=== PATIENT | female | born 1945 | race Caucasian/White ===

== ENCOUNTER 2017-01-27 08:31 | Inpatient (IN) | payer MEDICARE, OTHER ==
[~2017-01-27 08:31] MED LIST: Acetaminophen 1,000 MG in Premix Bag 1 BAG IV SCH; Famotidine 20 MG/2 ML SDV IVPUSH SCH; Ropivacaine 49.25 ML, EPINEPHrine 0.5 MG, cloNIDine 80 MCG in Sodium Chloride 0.9% 49.4... INJECT ONE; Scopolamine 1.5 MG Transdermal Patch TRDERM SCH; ceFAZolin 1 GM in Premix Bag 1 BAG IV SCH; ceFAZolin 2 GM in Premix Bag 1 BAG IV SCH; oxyCODONE ER 20 MG TAB.ER PO SCH
--- NOTE | 2017-01-27 09:11 | PCM.PREANE ---
Preanesthetic Assessment - Anesthesia/Transfusion/Family Hx Anesthesia History: Prior Anesthesia Without Reaction Other Type of Anesthesia Reaction Comment: Denies any known problem with anesthesia in the past Family History of Anesthesia Reaction: No Transfusion History: No Prior Transfusion(s) - Review of Systems General: No Symptoms Pulmonary: No Symptoms Cardiovascular: No Symptoms Gastrointestinal: No Symptoms Neurological: No Symptoms Other: Reports: None - Physical Assessment NPO Status Date: 01/26/17 Height: 1.52 m Weight: 75.75 kg ASA Class: 2 Mental Status: Alert & Oriented x3 Airway Class: Mallampati = 2 Dentition: Reports: Normal Dentition ROM/Head Extension: Full Lungs: Clear to Auscultation, Normal Respiratory Effort Cardiovascular: Regular Rate, Regular Rhythm - Allergies Allergies/Adverse Reactions: Allergies Allergy/AdvReac Type Severity Reaction Status Date / Time latex Allergy Itching Verified 01/25/14 12:29 - Blood Blood Available: Yes - Anesthesia Plan Pre-Op Medication Ordered: None - Acknowledgements Anesthesia Type Planned: Spinal Pt an Appropriate Candidate for the Planned Anesthesia: Yes Alternatives and Risks of Anesthesia Discussed w Pt/Guardian: Yes Pt/Guardian Understands and Agrees with Anesthesia Plan: Yes PreAnesthesia Questionnaire HEENT History: Reports: Other (See Below) Other HEENT History: wears glasses Cardiovascular History: Reports: Hypertension Respiratory History: Reports: Asthma Gastrointestinal History: Reports: Hiatal Hernia Genitourinary History: Reports: None 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: Musculoskeletal History: Reports: Arthritis Psychiatric History: Reports: Anxiety Endocrine/Metabolic History: Reports: Obesity/BMI 30+ Dermatologic History: Reports: Psoriasis - Past Surgical History Head Surgeries/Procedures: Reports: None Female Surgical History: Reports: Section Musculoskeletal Surgical History: Reports: Knee Replacement, Shoulder Surgery Other Musculoskeletal Surgeries/Procedures:: left knee replacement, shoulder surgery x3 - SUBSTANCE USE Smoking Status *Q: Never Smoker Second Hand Smoke Exposure: No Days Per Week of Alcohol Use: 3 Number of Drinks Per Day: 2 Total Drinks Per Week: 6 Recreational Drug Use History: No - HOME MEDS Home Medications: Home Meds Chlorthalidone 25 mg PO BEDTIME 09/06/13 [History] Albuterol [Proair HFA] 1 - 2 puff INH ASDIRECTED PRN 06/25/14 [History] Budesonide/Formoterol Fumarate [Symbicort 160-4.5 Mcg Inhaler] 2 puff INH DAILY 01/21/17 [History] Montelukast Sodium 10 mg PO BEDTIME 01/21/17 [History] - CURRENT (IN HOUSE) MEDS Current Meds: Current Medications Famotidine (Pepcid) 40 mg IVPUSH ONARRIVE [facility] Lactated Ringer's (Ringers, Lactated) 1,000 mls @ 100 mls/hr IV ASDIRECTED [facility] Acetaminophen 1,000 mg/ Premix 100 mls @ 400 mls/hr IV ONCALL [facility] Cefazolin Sodium/Dextrose 1 gm (/ Premix) 50 mls @ 100 mls/hr IV ONCALL [facility] Oxycodone HCl (Oxycontin) 20 mg PO ONARRIVE [facility] Scopolamine (Transderm-Scop) 1.5 mg TRDERM ONARRIVE [facility] Tranexamic Acid (Cyklokapron) 4,000 mg IV SEECOMMENT [facility] Discontinued Medications Cefazolin Sodium/Dextrose 2 gm (/ Premix) 50 mls @ 100 mls/hr IV ONCALL [facility] Ropivacaine 49.25 ml/Epinephrine HCl 0.5 mg/Clonidine HCl 80 mcg/ Sodium Chloride 100 mls @ 50 mls/min INJECT ONETIME ONE Stop: 01/27/17 06:01
[2017-01-27] MEDS ORDERED: Propofol 200 MG/20 ML SDV ONE ×3 (09:19→09:20)
[2017-01-27] MEDS ORDERED: Midazolam 1 MG/ML 2 ML SDV ONE ×2 (09:19)
[2017-01-27] MEDS ORDERED: fentaNYL 100 MCG/2 ML SDV ONE (09:22)
[2017-01-27] MEDS ORDERED: fentaNYL 100 MCG/2 ML SDV IVPUSH PRN (10:45)
[2017-01-27] MEDS ORDERED: Phenylephrine/Normal Saline 100 MCG/ML 10 ML Syringe ONE (10:53)
[2017-01-27] MEDS ORDERED: ePHEDrine 50 MG/ML SDV ONE (11:03)
[2017-01-27] MEDS ORDERED: Bisacodyl 10 MG Supp RECTAL PRN (12:05)
[2017-01-27] MEDS ORDERED: Aluminum Hydroxide/Magnesium Hydroxide/Simethicone Susp 30 ML Cup PO PRN (12:05)
[2017-01-27] MEDS ORDERED: diphenhydrAMINE 25 MG Cap PO PRN (12:05)
[2017-01-27] MEDS ORDERED: Ondansetron 4 MG/2 ML SDV IV PRN (12:05)
--- NOTE | 2017-01-27 13:19 | PCM.POSTAN ---
POST ANESTHESIA ASSESSMENT - MENTAL STATUS Mental Status: Alert, Oriented - RESPIRATORY Respiratory Status: Respiratory Rate WNL, Airway Patent, O2 Saturation Stable - CARDIOVASCULAR CV Status: Pulse Rate WNL, Blood Pressure Stable - GASTROINTESTINAL GI Status: No Symptoms - POST OP HYDRATION Hydration Status: Adequate & Stable
--- NOTE | 2017-01-27 13:20 | PCM.OPNOTE ---
- General Post-Op/Procedure Note Date of Surgery/Procedure: 01/27/17 Operative Procedure(s): R TKA Post-Op Diagnosis: DJD R knee Anesthesia Technique: Moderate Sedation, Spinal Primary Surgeon: Ivania Cortes Sign Hanger Supervisor: Fawn Palomares Sign Hanger Supervisor: Janina Ball in mLs: 50 Condition: Good Free Text/Narrative:: [id number] min #[id number] Intake & Output 01/26/17 01/27/17 01/27/17 22:59 06:59 14:59 Intake Total 1700 Output Total 165 Balance 1535
[2017-01-27] MEDS: oxyCODONE 5 MG Tab PO PRN (14:53)
--- NOTE | 2017-01-27 15:22 | CR ---
EXAMINATION: Right knee HISTORY: TKA COMPARISON: 12/25/2016 TECHNIQUE: 2 views FINDINGS/IMPRESSION: Right total knee hardware is demonstrated in good position and alignment. Operative soft tissue razo ges are noted.
[2017-01-27] MEDS: Acetaminophen 1,000 MG in Premix Bag 1 BAG IV SCH ×2 (15:32→21:41)
[2017-01-27] MEDS ORDERED: methylPREDNISolone Acetate 80 MG/ML SDV IM ONE (16:05)
[2017-01-27] MEDS ORDERED: Lidocaine 1% 10 ML MDV INJECT ONE (16:06)
[2017-01-27] MEDS: Morphine 4 MG/ML Syringe IVPUSH PRN ×2 (17:22→22:25)
[2017-01-27] MEDS: Lactated Ringers 1,000 ML IV SCH (17:28)
--- NOTE | 2017-01-27 18:04 | OR ---
SURGEON: Ivania Cortes MD DATE OF PROCEDURE: 01/27/2017 PREOPERATIVE DIAGNOSIS: Degenerative joint disease, right knee, tricompartmental. POSTOPERATIVE DIAGNOSIS: Degenerative joint disease, right knee, tricompartmental. PROCEDURE: Right total knee arthroplasty using patient-specific instrumentation. CLEARING INSPECTOR: Fawn Palomares PA-C and Janina Ball PA-C. ANESTHESIA: Spinal with sedation. ESTIMATED BLOOD LOSS: 50 mL. TOURNIQUET TIME: 51 minutes. COMPLICATIONS: None. DVT PROPHYLAXIS: PAS boot and YUMIKO hose to the nonoperative leg. IMPLANTS USED: Griselda NexGen femoral component size D (LPS), tibial component, size 3, 12 mm all-polyethylene articular surface, and 32 mm all-polyethylene patella. FINDINGS: Intraoperative findings showed severe tricompartmental degenerative changes with osteophyte formation. 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 BRIEF HISTORY: Julia is a 71-year-old female, who has had complaint of progressive right knee pain. She had failed conservative treatment. She has previously undergone a left total knee arthroplasty and has done well. Due to her lack of response to conservative treatment, I did recommend surgical intervention. The risks and goals of procedure were discussed with the patient and were documented preoperatively. She agreed to proceed. DESCRIPTION OF THE PROCEDURE: The patient was properly identified and brought to the operating room. The patient was transferred from the operating room cart and placed on the operating room table. Spinal anesthesia was administered by the anesthesia team. After adequate sedation was achieved, a well-padded tourniquet was applied to the lower extremity. A Rodriguez catheter was then placed. The lower extremity was then prepped in standard fashion using ChloraPrep solution. It was then sterilely draped. A time-out was performed to ensure correct site and procedure. Preoperative antibiotics were given along with one gram of tranexamic acid IV. The surgical site had been marked preoperatively. An Esmarch was used to exsanguinate the lower extremity and the tourniquet was inflated. An incision was made centered over the anterior aspect of the knee. The subcutaneous tissues were dissected down to the level of the fascia. A medial parapatellar approach was made. A partial medial release was also performed. The knee was then brought into extension and a portion of the infrapatellar fat pad was excised. The knee was then brought into flexion. The femoral patient specific cutting block was placed. This fit anatomically. The pins were then placed. The 0 degree distal femoral cutting guide was placed over the distal femur pins. The femur was then resected using an oscillating saw. The pins were then removed and were placed into the previously placed distal drill holes in the femoral condyles. Both Hepler's and the epicondylar axis were marked with electric cautery. The cutting block was then placed. This was pinned into position in a slightly lateral and externally rotated position. This was then secured. The resection guide was used to check to make sure that the anterior femoral cortex would not be notched. The anterior condylar cut was then made. No notching of the femur was noted. This was followed by the posterior condylar, posterior chamfer, and anterior chamfer cuts. The narrow reciprocating saw was then used to cut the base of the trochlear recess and score the edges. The finishing guide was then removed and the trochlear recess cuts and remaining bone cuts were finished. The notch cutting block was then placed into position and the notch cut was made without difficulty using the reciprocating saw. This was then removed. The notch block that had been cut along with a portion of the cruciate ligaments were also resected. We then turned our attention to the tibia. The posterior cruciate ligament retractor was used to bring the tibial surface anteriorly. The patient specific tibial block was then placed. This fit anatomically. It was pinned into position. The block was then removed. The 0 degree proximal tibia cutting guide was then placed over the guide pin. This was secured with a Shivani clamp. The resection depth was checked using the resection guide. A proximal tibia cut was then made using an oscillating saw. Care was taken to protect the patellar tendon. The proximal tibia bone was then removed. The remainder of the medial and lateral meniscus were also excised. Care was taken to protect the popliteus tendon. The proximal tibia was then sized. The remainder of the osteophytes along the proximal tibia were also resected. The distal femur was elevated to expose the posterior knee. The posterior capsule was stripped off of the distal femur using a curved osteotome. The posterior osteophytes were also excised. The posterior capsule, along with the medial and lateral gutters, were then injected with the standard, preoperatively prepared, mixture consisting of clonidine, epinephrine, ropivacaine, Toradol, and saline, unless any allergies were noted preoperatively. The femoral trial was then placed. This was followed by the tibial component with a size 10 trial polyethylene. The knee was brought into full extension. Stability to varus and valgus stress was checked in extension and in flexion. There appeared to be good range of motion and stability. The knee was then brought into full extension. The patella was everted. The patella was resected to a thickness of 15 millimeters. It was then sized. Once the appropriate size was determined, the patella was prepared by placing the patella button in a slightly superior and medial position. The patella button trial was then placed and the knee was again taken through a range of motion. There was excellent patellar tracking using the no-touch technique. Alignment was checked with a drop mitzi. The trial components were then removed. The knee was brought into full flexion and the tibia was prepared in a standard fashion placing the tibial plate in slight external rotation with the center of the prosthesis lined up with the medial aspect of the tibial tubercle. The wound was then copiously irrigated with Pulsavac solution to remove any bony debris. The bone ends were then suctioned dry. Cement was prepared in the usual fashion on the back table. The cement was then placed onto the proximal tibia and the tibial component was placed without difficulty. This was malleted into position. Excess cement was cleared. The femoral component was cemented in a similar manner. A trial polyethylene was then placed and the knee was brought into full extension. An axial load was applied. The patella button was then cemented into place and a patella clamp was placed to hold pressure. The cement was allowed to cure. The wound was again copiously irrigated with saline solution using a Pulsavac glass cylinder flanger. Following this 1 g of tranexamic acid was applied to the wound topically. After the cement had adequately hardened, the patella clamp was released. The knee was again taken through a range of motion. It was determined at this time the correct thickness of polyethylene. The trial polyethylene insert was then removed. The knee was brought into flexion and the tibial tray was suctioned dry. Any excess cement was cleared from the tibial and femoral components. The knee was then brought into approximately 45 degrees of flexion. The tourniquet was deflated. No excess bleeding was noted from the posterior aspect of the knee. An additional gram of tranexamic acid was given IV. The previously determined sized polyethylene insert was then placed and locked into position without difficulty. The knee was again taken through a range of motion with no change in stability, either in flexion or extension. The fascia layer was closed with No. 1 Vicryl. The subcutaneous tissue was closed with 2-0 Vicryl and the skin was closed with a jelly. Xeroform gauze was placed over the wound and a bulky dressing was applied. The patient was then awakened from the anesthetic and transferred back to the operating cart. The patient was brought to recovery room in stable condition. All needle and sponge counts were correct. LIANNA / MAUDE /[id number]
[2017-01-27] MEDS: ceFAZolin 1 GM in Premix Bag 1 BAG IV SCH (18:29)
[2017-01-27] MEDS: Docusate Sodium 100 MG Cap PO SCH (21:40)
[2017-01-27] MEDS: oxyCODONE ER 20 MG TAB.ER PO SCH (21:40)
[2017-01-28] MEDS: oxyCODONE 5 MG Tab PO PRN (02:01)
[2017-01-28] MEDS: ceFAZolin 1 GM in Premix Bag 1 BAG IV SCH (02:44)
[2017-01-28] MEDS: Acetaminophen 500 MG Tab PO SCH ×4 (03:14→21:11)
[2017-01-28] MEDS: Lactated Ringers 1,000 ML IV SCH (03:59)
--- NOTE | 2017-01-28 08:17 | PCM48HPAN ---
Post Anesthesia Note - EVALUATION WITHIN 48HRS OF ANESTHETIC Vital Signs in Normal Range: Yes Patient Participated in Evaluation: Yes Respiratory Function Stable: Yes Airway Patent: Yes Cardiovascular Function Stable: Yes Hydration Status Stable: Yes Pain Control Satisfactory: Yes Nausea and Vomiting Control Satisfactory: Yes Mental Status Recovered: Yes
[2017-01-28] MEDS: Aspirin 325 MG Tab PO SCH ×2 (08:20→21:07)
[2017-01-28] MEDS: Docusate Sodium 100 MG Cap PO SCH ×2 (08:21→21:07)
[2017-01-28] MEDS: oxyCODONE ER 20 MG TAB.ER PO SCH ×2 (08:21→21:07)
[2017-01-28] MEDS ORDERED: Sodium Chloride 0.9% 10 ML Syringe FLUSH PRN (08:44)
[2017-01-28] MEDS ORDERED: Sodium Chloride 0.9% 2.5 ML Syringe FLUSH PRN (08:44)
--- NOTE | 2017-01-28 08:49 | PCM.SURGPN ---
- General Info Date of Service: 01/28/17 Date of Surgery/Procedure: 01/27/17 POD#: 1 Functional Status: Reports: Pain Controlled, Tolerating Diet, Ambulating - Review of Systems General: Reports: No Symptoms Pulmonary: Reports: No Symptoms Cardiovascular: Reports: No Symptoms Gastrointestinal: Reports: No Symptoms Genitourinary: Reports: No Symptoms Musculoskeletal: Reports: Leg Pain, Joint Pain, Joint Swelling Neurological: Reports: No Symptoms Psychiatric: Reports: No Symptoms - Patient Data Vitals - Most Recent: Last Vital Signs Temp 36.8 C 01/28/17 08:25 Pulse 78 01/28/17 08:25 Resp 16 01/28/17 08:25 BP 155/70 H 01/28/17 08:25 Pulse Ox 97 01/28/17 08:25 Weight - Most Recent: 75.75 kg I&O - Last 24 Hours: Intake & Output 01/27/17 01/28/17 01/28/17 22:59 06:59 14:59 Intake Total 1100 1574 Output Total 300 900 Balance 800 674 Lab Results Last 24 Hrs: Laboratory Results - last 24 hr 01/27/17 01/28/17 Range/Units 09:20 07:06 Hgb 15.1 (12.0-16.0) g/dL Hct 43.8 (36.0-46.0) % Blood Type O NEGATIVE Antibody Screen NEGATIVE Med Orders - Current: Current Medications Acetaminophen (Tylenol Extra Strength) 1,000 mg PO Q6H [facility] Last Admin: 01/28/17 03:14 Dose: 1,000 mg Al Hydroxide/Mg Hydroxide (Mag-Al Plus) 30 ml PO Q4H PRN PRN Reason: indigestion Aspirin (Aspirin) 325 mg PO BID [facility] Last Admin: 01/28/17 08:20 Dose: 325 mg Bisacodyl (Dulcolax) 10 mg RECTAL DAILY PRN PRN Reason: Constipation Diphenhydramine HCl (Benadryl) 25 - 50 mg PO Q6H PRN PRN Reason: Itching Docusate Sodium (Colace) 100 mg PO BID [facility] Last Admin: 01/28/17 08:21 Dose: 100 mg Morphine Sulfate (Morphine) 1 - 3 mg IVPUSH Q3H PRN PRN Reason: Pain Last Admin: 01/27/17 22:25 Dose: 3 mg Ondansetron HCl (Zofran) 4 mg IV Q6HR PRN PRN Reason: NAUSEA/VOMITING Oxycodone HCl (Oxycodone) 5 - 10 mg PO Q4H PRN PRN Reason: Pain Last Admin: 01/28/17 02:01 Dose: 10 mg Oxycodone HCl (Oxycontin) 20 mg PO Q12HR [facility] Last Admin: 01/28/17 08:21 Dose: 20 mg Scopolamine (Transderm-Scop) 1.5 mg TRDERM ONARRIVE [facility] Last Admin: 01/27/17 09:26 Dose: 1.5 mg Sodium Chloride (Saline Flush) 10 ml FLUSH ASDIRECTED PRN PRN Reason: Keep Vein Open Sodium Chloride (Saline Flush) 2.5 ml FLUSH ASDIRECTED PRN PRN Reason: Keep Vein Open Discontinued Medications Ephedrine Sulfate (Ephedrine Sulfate) Confirm Administered Dose 50 mg .ROUTE .STK-MED ONE Stop: 01/27/17 11:04 Famotidine (Pepcid) 40 mg IVPUSH ONARRIVE [facility] Last Admin: 01/27/17 09:26 Dose: 40 mg Fentanyl (Sublimaze) Confirm Administered Dose 100 mcg .ROUTE .STK-MED ONE Stop: 01/27/17 09:23 Fentanyl (Sublimaze) 50 mcg IVPUSH Q5M PRN PRN Reason: Pain (moderate 4-6) Stop: 01/27/17 14:00 Glycopyrrolate () Confirm Administered Dose 1 mg .ROUTE .STK-MED ONE Stop: 01/27/17 11:06 Cefazolin Sodium/Dextrose 2 gm (/ Premix) 50 mls @ 100 mls[facility] Ropivacaine 49.25 ml/Epinephrine HCl 0.5 mg/Clonidine HCl 80 mcg/ Sodium Chloride 100 mls @ 50 mls/min INJECT ONETIME ONE Stop: 01/27/17 06:01 Lactated Ringer's (Ringers, Lactated) 1,000 mls @ 100 mls/hr IV ASDIRECTED [facility] Last Admin: 01/28/17 03:59 Dose: 100 mls/hr Acetaminophen 1,000 mg/ Premix 100 mls @ 400 mls/hr IV ONCALL [facility] Last Admin: 01/27/17 09:26 Dose: 400 mls/hr Cefazolin Sodium/Dextrose 1 gm (/ Premix) 50 mls @ 100 mls/hr IV ONCALL [facility] Cefazolin Sodium/Dextrose (Ancef) Confirm Administered Dose 50 mls @ as directed .ROUTE .STK-MED ONE Stop: 01/27/17 09:18 Acetaminophen 1,000 mg/ Premix 100 mls @ 400 mls/hr IV Q6H [facility] Stop: 01/27/17 22:14 Last Admin: 01/27/17 21:41 Dose: 400 mls/hr Cefazolin Sodium/Dextrose 1 gm (/ Premix) 50 mls @ 100 mls/hr IV Q8H [facility] Stop: 01/28/17 03:29 Last Admin: 01/28/17 02:44 Dose: 100 mls/hr Lidocaine HCl (Xylocaine 1%) 10 ml INJECT ONETIME ONE Stop: 01/27/17 16:07 Methylprednisolone Acetate (Depo-Medrol) 160 mg IM ONETIME ONE Stop: 01/27/17 16:06 Last Admin: 01/28/17 08:02 Dose: 160 mg Midazolam HCl (Versed 1 Mg/Ml) Confirm Administered Dose 2 mg .ROUTE .STK-MED ONE Stop: 01/27/17 09:20 Midazolam HCl (Versed 1 Mg/Ml) Confirm Administered Dose 2 mg .ROUTE .STK-MED ONE Stop: 01/27/17 09:20 Oxycodone HCl (Oxycontin) 20 mg PO ONARRIVE [facility] Last Admin: 01/27/17 09:25 Dose: 20 mg Phenylephrine HCl (Phenylephrine In Ns 100 Mcg/Ml) Confirm Administered Dose 1 mg .ROUTE .STK-MED ONE Stop: 01/27/17 10:54 Propofol (Diprivan 20 Ml) Confirm Administered Dose 200 mg .ROUTE .STK-MED ONE Stop: 01/27/17 09:20 Propofol (Diprivan 20 Ml) Confirm Administered Dose 200 mg .ROUTE .STK-MED ONE Stop: 01/27/17 09:20 Propofol (Diprivan 20 Ml) Confirm Administered Dose 200 mg .ROUTE .STK-MED ONE Stop: 01/27/17 09:21 Tranexamic Acid (Cyklokapron) 4,000 mg IV SEECOMMENT [facility] Tranexamic Acid (Cyklokapron) Confirm Administered Dose 4,000 mg .ROUTE .STK- MED ONE Stop: 01/27/17 09:17 - Exam Wound/Incisions: Dressing Dry and Intact General: Alert, Oriented HEENT: Pupils Equal, Pupils Reactive Neck: Trachea Midline Lungs: Normal Respiratory Effort Cardiovascular: Regular Rate Extremities: Other (Right anterior tibialis, extensor hallucis longus and gastrocnemius strength +5/5 bilaterally. Sensation intact. Dorsalis pedis and posterior tibial pulses +2 bilaterally. She does have point tenderness over the right greater trochanteric bursa.) Neurological: No New Focal Deficit Psy/Mental Status: Alert, Normal Affect, Normal Mood - Problem List Review Problem List Initiated/Reviewed/Updated: Yes - My Orders Last 24 Hours: Active Orders 24 hr Category Date Time Status Patient Status [ADT] Routine ADT 01/27/17 08:49 Active Activity as Tolerated [RC] .Routine Care 01/27/17 12:05 Active Intake and Output [RC] Q12H Care 01/27/17 12:05 Active Neurovascular Check [RC] Q2HR Care 01/27/17 12:05 Active Notify Provider Vital Signs [RC] ASDIRECTED Care 01/27/17 12:05 Active RT Incentive Spirometry [RC] ASDIRECTED Care 01/27/17 12:05 Active Remove [place] Catheter [Urinary Catheter Removal] [RC] Care 01/28/17 08:44 Ordered Per Unit Routine Vital Signs [RC] Q4H Care 01/27/17 12:05 Active PT Evaluation and Treatment [CONS] Routine Cons 01/27/17 12:05 Active HEMOGLOBIN/HEMATOCRIT,HH [HEME] DAILY Lab 01/29/17 07:00 Ordered HEMOGLOBIN/HEMATOCRIT,HH [HEME] DAILY Lab 01/30/17 07:00 Ordered Acetaminophen [Tylenol Extra Strength] Med 01/28/17 04:00 Active 1,000 mg PO Q6H Alum Hydrox/Mag Hydrox/Simeth [Mag-Al Plus] Med 01/27/17 12:05 Active 30 ml PO Q4H PRN Aspirin Med 01/28/17 09:00 Active 325 mg PO BID Bisacodyl [Dulcolax] Med 01/27/17 12:05 Active 10 mg RECTAL DAILY PRN Docusate Sodium [Colace] Med 01/27/17 21:00 Active 100 mg PO BID Morphine Med 01/27/17 12:05 Active 1 - 3 mg IVPUSH Q3H PRN Ondansetron [Zofran] Med 01/27/17 12:05 Active 4 mg IV Q6HR PRN Sodium Chloride 0.9% [Saline Flush] Med 01/28/17 08:44 Ordered 10 ml FLUSH ASDIRECTED PRN Sodium Chloride 0.9% [Saline Flush] Med 01/28/17 08:44 Ordered 2.5 ml FLUSH ASDIRECTED PRN diphenhydrAMINE [Benadryl] Med 01/27/17 12:05 Active 25 - 50 mg PO Q6H PRN oxyCODONE Med 01/27/17 12:05 Active 5 - 10 mg PO Q4H PRN oxyCODONE ER [OxyCONTIN] Med 01/27/17 21:00 Active 20 mg PO Q12HR Convert IV to Saline Lock [OM.PC] Routine Oth 01/28/17 08:44 Ordered Medication Orders Acetaminophen (Tylenol Extra Strength) 1,000 mg PO Q6H [facility] Last Admin: 01/28/17 03:14 Dose: 1,000 mg Al Hydroxide/Mg Hydroxide (Mag-Al Plus) 30 ml PO Q4H PRN PRN Reason: indigestion Aspirin (Aspirin) 325 mg PO BID [facility] Last Admin: 01/28/17 08:20 Dose: 325 mg Bisacodyl (Dulcolax) 10 mg RECTAL DAILY PRN PRN Reason: Constipation Diphenhydramine HCl (Benadryl) 25 - 50 mg PO Q6H PRN PRN Reason: Itching Docusate Sodium (Colace) 100 mg PO BID [facility] Last Admin: 01/28/17 08:21 Dose: 100 mg Admin: 01/27/17 21:40 Dose: 100 mg Morphine Sulfate (Morphine) 1 - 3 mg IVPUSH Q3H PRN PRN Reason: Pain Last Admin: 01/27/17 22:25 Dose: 3 mg Admin: 01/27/17 17:22 Dose: 3 mg Ondansetron HCl (Zofran) 4 mg IV Q6HR PRN PRN Reason: NAUSEA/VOMITING Oxycodone HCl (Oxycodone) 5 - 10 mg PO Q4H PRN PRN Reason: Pain Last Admin: 01/28/17 02:01 Dose: 10 mg Admin: 01/27/17 14:53 Dose: 10 mg Oxycodone HCl (Oxycontin) 20 mg PO Q12HR [facility] Last Admin: 01/28/17 08:21 Dose: 20 mg Admin: 01/27/17 21:40 Dose: 20 mg Scopolamine (Transderm-Scop) 1.5 mg TRDERM ONARRIVE [facility] Last Admin: 01/27/17 09:26 Dose: 1.5 mg Sodium Chloride (Saline Flush) 10 ml FLUSH ASDIRECTED PRN PRN Reason: Keep Vein Open Sodium Chloride (Saline Flush) 2.5 ml FLUSH ASDIRECTED PRN PRN Reason: Keep Vein Open - Assessment Assessment (Free Text/Narrative):: Patient up to chair this AM. Tolerating diet. Pain not well controlled last night. VSS. Hgb 15.1. UO 1440 mL. - Plan Plan (Free Text/Narrative):: R greater trochanteric bursa injected at bedside today. Continue pain management. Continue PT. DC de la fuente and LRs. Encourage PO fluid intake. Start Aspirin 325 mg PO BID for DVT prophylaxis. D/C home tomorrow.
[2017-01-28] MEDS ORDERED: Albuterol 8 GM Inhaler INH PRN (10:28)
[2017-01-28] MEDS: Morphine 4 MG/ML Syringe IVPUSH PRN (11:27)
[2017-01-28] MEDS: SYMBICORT 160/4.5 INH SCH (11:30)
[2017-01-28] MEDS ORDERED: Montelukast 10 MG Tab PO SCH (21:00)
[2017-01-28] MEDS ORDERED: Chlorthalidone 25 MG Tab PO SCH (21:00)
[2017-01-29] MEDS: Acetaminophen 500 MG Tab PO SCH ×2 (03:47→09:16)
--- NOTE | 2017-01-29 07:54 | PCM.SURGPN ---
<Fawn Palomares - Last Filed: 01/29/17 07:55> - General Info Date of Service: 01/29/17 Date of Surgery/Procedure: 01/27/17 POD#: 2 Functional Status: Reports: Pain Controlled, Tolerating Diet, Ambulating, Urinating - Review of Systems General: Reports: No Symptoms Pulmonary: Reports: No Symptoms Cardiovascular: Reports: No Symptoms Gastrointestinal: Reports: No Symptoms Genitourinary: Reports: No Symptoms Musculoskeletal: Reports: Leg Pain, Joint Pain, Joint Swelling Neurological: Reports: No Symptoms Psychiatric: Reports: No Symptoms - Patient Data Vitals - Most Recent: Last Vital Signs Temp 36.3 C 01/29/17 04:00 Pulse 80 01/29/17 04:00 Resp 16 01/29/17 04:00 BP 136/64 01/29/17 04:00 Pulse Ox 94 L 01/29/17 04:00 Weight - Most Recent: 75.75 kg I&O - Last 24 Hours: Intake & Output 01/28/17 01/29/17 01/29/17 22:59 06:59 14:59 Intake Total 500 600 Output Total 1550 1950 Balance -1050 -1350 Lab Results Last 24 Hrs: Laboratory Results - last 24 hr 01/29/17 Range/Units 06:55 Hgb 15.9 (12.0-16.0) g/dL Hct 46.0 (36.0-46.0) % Med Orders - Current: Current Medications Acetaminophen (Tylenol Extra Strength) 1,000 mg PO Q6H [facility] Last Admin: 01/29/17 03:47 Dose: 1,000 mg Al Hydroxide/Mg Hydroxide (Mag-Al Plus) 30 ml PO Q4H PRN PRN Reason: indigestion Albuterol (Ventolin Hfa) 1 - 2 gm INH ASDIRECTED PRN PRN Reason: Dyspnea Aspirin (Aspirin) 325 mg PO BID [facility] Last Admin: 01/28/17 21:07 Dose: 325 mg Bisacodyl (Dulcolax) 10 mg RECTAL DAILY PRN PRN Reason: Constipation Chlorthalidone (Chlorthalidone) 25 mg PO BEDTIME [facility] Last Admin: 01/28/17 21:07 Dose: 25 mg Diphenhydramine HCl (Benadryl) 25 - 50 mg PO Q6H PRN PRN Reason: Itching Docusate Sodium (Colace) 100 mg PO BID [facility] Last Admin: 01/28/17 21:07 Dose: 100 mg Montelukast Sodium (Singulair) 10 mg PO BEDTIME [facility] Last Admin: 01/28/17 21:08 Dose: 10 mg Morphine Sulfate (Morphine) 1 - 3 mg IVPUSH Q3H PRN PRN Reason: Pain Last Admin: 01/28/17 11:27 Dose: 3 mg Ondansetron HCl (Zofran) 4 mg IV Q6HR PRN PRN Reason: NAUSEA/VOMITING Oxycodone HCl (Oxycodone) 5 - 10 mg PO Q4H PRN PRN Reason: Pain Last Admin: 01/28/17 02:01 Dose: 10 mg Oxycodone HCl (Oxycontin) 20 mg PO Q12HR [facility] Last Admin: 01/28/17 21:07 Dose: 20 mg Symbicort 160/4.5 2 each INH DAILY [facility] Last Admin: 01/28/17 11:30 Dose: 2 each Scopolamine (Transderm-Scop) 1.5 mg TRDERM ONARRIVE [facility] Last Admin: 01/27/17 09:26 Dose: 1.5 mg Sodium Chloride (Saline Flush) 10 ml FLUSH ASDIRECTED PRN PRN Reason: Keep Vein Open Sodium Chloride (Saline Flush) 2.5 ml FLUSH ASDIRECTED PRN PRN Reason: Keep Vein Open Discontinued Medications Ephedrine Sulfate (Ephedrine Sulfate) Confirm Administered Dose 50 mg .ROUTE .STK-MED ONE Stop: 01/27/17 11:04 Famotidine (Pepcid) 40 mg IVPUSH ONARRIVE [facility] Last Admin: 01/27/17 09:26 Dose: 40 mg Fentanyl (Sublimaze) Confirm Administered Dose 100 mcg .ROUTE .STK-MED ONE Stop: 01/27/17 09:23 Fentanyl (Sublimaze) 50 mcg IVPUSH Q5M PRN PRN Reason: Pain (moderate 4-6) Stop: 01/27/17 14:00 Glycopyrrolate () Confirm Administered Dose 1 mg .ROUTE .STK-MED ONE Stop: 01/27/17 11:06 Cefazolin Sodium/Dextrose 2 gm (/ Premix) 50 mls @ 100 mls/hr IV ONCALL [facility] Ropivacaine 49.25 ml/Epinephrine HCl 0.5 mg/Clonidine HCl 80 mcg/ Sodium Chloride 100 mls @ 50 mls/min INJECT ONETIME ONE Stop: 01/27/17 06:01 Last Admin: 01/28/17 16:25 Dose: Not Given Lactated Ringer's (Ringers, Lactated) 1,000 mls @ 100 mls/hr IV ASDIRECTED [facility] Last Admin: 01/28/17 03:59 Dose: 100 mls/hr Acetaminophen 1,000 mg/ Premix 100 mls @ 400 mls/hr IV ONCALL [facility] Last Admin: 01/27/17 09:26 Dose: 400 mls/hr Cefazolin Sodium/Dextrose 1 gm (/ Premix) 50 mls @ 100 mls/hr IV ONCALL [facility] Cefazolin Sodium/Dextrose (Ancef) Confirm Administered Dose 50 mls @ as directed .ROUTE .STK-MED ONE Stop: 01/27/17 09:18 Acetaminophen 1,000 mg/ Premix 100 mls @ 400 mls/hr IV Q6H [facility] Stop: 01/27/17 22:14 Last Admin: 01/27/17 21:41 Dose: 400 mls/hr Cefazolin Sodium/Dextrose 1 gm (/ Premix) 50 mls @ 100 mls/hr IV Q8H [facility] Stop: 01/28/17 03:29 Last Admin: 01/28/17 02:44 Dose: 100 mls/hr Lidocaine HCl (Xylocaine 1%) 10 ml INJECT ONETIME ONE Stop: 01/27/17 16:07 Last Admin: 01/28/17 16:25 Dose: Not Given Methylprednisolone Acetate (Depo-Medrol) 160 mg IM ONETIME ONE Stop: 01/27/17 16:06 Last Admin: 01/28/17 08:02 Dose: 160 mg Midazolam HCl (Versed 1 Mg/Ml) Confirm Administered Dose 2 mg .ROUTE .STK-MED ONE Stop: 01/27/17 09:20 Midazolam HCl (Versed 1 Mg/Ml) Confirm Administered Dose 2 mg .ROUTE .STK-MED ONE Stop: 01/27/17 09:20 Oxycodone HCl (Oxycontin) 20 mg PO ONARRIVE [facility] Last Admin: 01/27/17 09:25 Dose: 20 mg Phenylephrine HCl (Phenylephrine In Ns 100 Mcg/Ml) Confirm Administered Dose 1 mg .ROUTE .STK-MED ONE Stop: 01/27/17 10:54 Propofol (Diprivan 20 Ml) Confirm Administered Dose 200 mg .ROUTE .STK-MED ONE Stop: 01/27/17 09:20 Propofol (Diprivan 20 Ml) Confirm Administered Dose 200 mg .ROUTE .STK-MED ONE Stop: 01/27/17 09:20 Propofol (Diprivan 20 Ml) Confirm Administered Dose 200 mg .ROUTE .STK-MED ONE Stop: 01/27/17 09:21 Tranexamic Acid (Cyklokapron) 4,000 mg IV SEECOMMENT [facility] Tranexamic Acid (Cyklokapron) Confirm Administered Dose 4,000 mg .ROUTE .STK- MED ONE Stop: 01/27/17 09:17 - Exam Wound/Incisions: Dressing Dry and Intact (Dressing changed this AM.) General: Alert, Oriented HEENT: Pupils Equal, Pupils Reactive Neck: Trachea Midline Lungs: Normal Respiratory Effort Cardiovascular: Regular Rate Extremities: Other (Right anterior tibialis, extensor hallucis longus and gastrocnemius strength +5/5 bilaterally. Sensation intact. Dorsalis pedis and posterior tibial pulses +2 bilaterally.) Neurological: No New Focal Deficit Psy/Mental Status: Alert, Normal Affect, Normal Mood - Problem List Review Problem List Initiated/Reviewed/Updated: Yes - My Orders Last 24 Hours: Active Orders 24 hr Category Date Time Status HEMOGLOBIN/HEMATOCRIT,HH [HEME] DAILY Lab 01/30/17 07:00 Ordered Albuterol [Ventolin HFA] Med 01/28/17 10:28 Active 1 - 2 gm INH ASDIRECTED PRN Aspirin Med 01/28/17 09:00 Active 325 mg PO BID Chlorthalidone Med 01/28/17 21:00 Active 25 mg PO BEDTIME Montelukast [Singulair] Med 01/28/17 21:00 Active 10 mg PO BEDTIME Patient's Own Medication [Ptom] Med 01/28/17 10:30 Active 2 each INH DAILY Sodium Chloride 0.9% [Saline Flush] Med 01/28/17 08:44 Active 10 ml FLUSH ASDIRECTED PRN Sodium Chloride 0.9% [Saline Flush] Med 01/28/17 08:44 Active 2.5 ml FLUSH ASDIRECTED PRN Convert IV to Saline Lock [OM.PC] Routine Oth 01/28/17 08:44 Ordered Medication Orders Acetaminophen (Tylenol Extra Strength) 1,000 mg PO Q6H [facility] Last Admin: 01/29/17 03:47 Dose: 1,000 mg Admin: 01/28/17 21:11 Dose: 1,000 mg Admin: 01/28/17 15:22 Dose: 1,000 mg Admin: 01/28/17 09:51 Dose: 1,000 mg Admin: 01/28/17 03:14 Dose: 1,000 mg Al Hydroxide/Mg Hydroxide (Mag-Al Plus) 30 ml PO Q4H PRN PRN Reason: indigestion Albuterol (Ventolin Hfa) 1 - 2 gm INH ASDIRECTED PRN PRN Reason: Dyspnea Aspirin (Aspirin) 325 mg PO BID [facility] Last Admin: 01/28/17 21:07 Dose: 325 mg Admin: 01/28/17 08:20 Dose: 325 mg Bisacodyl (Dulcolax) 10 mg RECTAL DAILY PRN PRN Reason: Constipation Chlorthalidone (Chlorthalidone) 25 mg PO BEDTIME [facility] Last Admin: 01/28/17 21:07 Dose: 25 mg Diphenhydramine HCl (Benadryl) 25 - 50 mg PO Q6H PRN PRN Reason: Itching Docusate Sodium (Colace) 100 mg PO BID [facility] Last Admin: 01/28/17 21:07 Dose: 100 mg Admin: 01/28/17 08:21 Dose: 100 mg Admin: 01/27/17 21:40 Dose: 100 mg Montelukast Sodium (Singulair) 10 mg PO BEDTIME [facility] Last Admin: 01/28/17 21:08 Dose: 10 mg Morphine Sulfate (Morphine) 1 - 3 mg IVPUSH Q3H PRN PRN Reason: Pain Last Admin: 01/28/17 11:27 Dose: 3 mg Admin: 01/27/17 22:25 Dose: 3 mg Admin: 01/27/17 17:22 Dose: 3 mg Ondansetron HCl (Zofran) 4 mg IV Q6HR PRN PRN Reason: NAUSEA/VOMITING Oxycodone HCl (Oxycodone) 5 - 10 mg PO Q4H PRN PRN Reason: Pain Last Admin: 01/28/17 02:01 Dose: 10 mg Admin: 01/27/17 14:53 Dose: 10 mg Oxycodone HCl (Oxycontin) 20 mg PO Q12HR [facility] Last Admin: 01/28/17 21:07 Dose: 20 mg Admin: 01/28/17 08:21 Dose: 20 mg Admin: 01/27/17 21:40 Dose: 20 mg Symbicort 160/4.5 2 each INH DAILY [facility] Last Admin: 01/28/17 11:30 Dose: 2 each Scopolamine (Transderm-Scop) 1.5 mg TRDERM ONARRIVE [facility] Last Admin: 01/27/17 09:26 Dose: 1.5 mg Sodium Chloride (Saline Flush) 10 ml FLUSH ASDIRECTED PRN PRN Reason: Keep Vein Open Sodium Chloride (Saline Flush) 2.5 ml FLUSH ASDIRECTED PRN PRN Reason: Keep Vein Open - Assessment Assessment (Free Text/Narrative):: Patient up to chair this AM. Tolerating diet. Pain well controlled. VSS. Hgb 15.9. UO 3500 mL. - Plan Plan (Free Text/Narrative):: Continue PT. Continue PO pain management. Encourage PO fluid intake. D/C home this afternoon. <Ivania Cortes R - Last Filed: 01/29/17 10:38> - Patient Data Vitals - Most Recent: Last Vital Signs Temp 97.7 F 01/29/17 08:00 Pulse 92 01/29/17 08:00 Resp 16 01/29/17 08:00 BP 135/69 01/29/17 08:00 Pulse Ox 95 01/29/17 08:00 I&O - Last 24 Hours: Intake & Output 01/28/17 01/29/17 01/29/17 22:59 06:59 14:59 Intake Total 500 600 Output Total 1550 1950 Balance -1050 -1350 Lab Results Last 24 Hrs: Laboratory Results - last 24 hr 01/29/17 Range/Units 06:55 Hgb 15.9 (12.0-16.0) g/dL Hct 46.0 (36.0-46.0) % Med Orders - Current: Current Medications Acetaminophen (Tylenol Extra Strength) 1,000 mg PO Q6H [facility] Last Admin: 01/29/17 09:16 Dose: 1,000 mg Al Hydroxide/Mg Hydroxide (Mag-Al Plus) 30 ml PO Q4H PRN PRN Reason: indigestion Albuterol (Ventolin Hfa) 1 - 2 gm INH ASDIRECTED PRN PRN Reason: Dyspnea Aspirin (Aspirin) 325 mg PO BID [facility] Last Admin: 01/29/17 09:17 Dose: 325 mg Bisacodyl (Dulcolax) 10 mg RECTAL DAILY PRN PRN Reason: Constipation Chlorthalidone (Chlorthalidone) 25 mg PO BEDTIME [facility] Last Admin: 01/28/17 21:07 Dose: 25 mg Diphenhydramine HCl (Benadryl) 25 - 50 mg PO Q6H PRN PRN Reason: Itching Docusate Sodium (Colace) 100 mg PO BID [facility] Last Admin: 01/29/17 09:17 Dose: 100 mg Montelukast Sodium (Singulair) 10 mg PO BEDTIME [facility] Last Admin: 01/28/17 21:08 Dose: 10 mg Morphine Sulfate (Morphine) 1 - 3 mg IVPUSH Q3H PRN PRN Reason: Pain Last Admin: 01/28/17 11:27 Dose: 3 mg Ondansetron HCl (Zofran) 4 mg IV Q6HR PRN PRN Reason: NAUSEA/VOMITING Oxycodone HCl (Oxycodone) 5 - 10 mg PO Q4H PRN PRN Reason: Pain Last Admin: 01/28/17 02:01 Dose: 10 mg Oxycodone HCl (Oxycontin) 20 mg PO Q12HR [facility] Last Admin: 01/29/17 09:16 Dose: 20 mg Symbicort 160/4.5 2 each INH DAILY [facility] Last Admin: 01/29/17 09:17 Dose: 2 each Scopolamine (Transderm-Scop) 1.5 mg TRDERM ONARRIVE [facility] Last Admin: 01/27/17 09:26 Dose: 1.5 mg Sodium Chloride (Saline Flush) 10 ml FLUSH ASDIRECTED PRN PRN Reason: Keep Vein Open Sodium Chloride (Saline Flush) 2.5 ml FLUSH ASDIRECTED PRN PRN Reason: Keep Vein Open Discontinued Medications Ephedrine Sulfate (Ephedrine Sulfate) Confirm Administered Dose 50 mg .ROUTE .STK-MED ONE Stop: 01/27/17 11:04 Famotidine (Pepcid) 40 mg IVPUSH ONARRIVE [facility] Last Admin: 01/27/17 09:26 Dose: 40 mg Fentanyl (Sublimaze) Confirm Administered Dose 100 mcg .ROUTE .STK-MED ONE Stop: 01/27/17 09:23 Fentanyl (Sublimaze) 50 mcg IVPUSH Q5M PRN PRN Reason: Pain (moderate 4-6) Stop: 01/27/17 14:00 Glycopyrrolate () Confirm Administered Dose 1 mg .ROUTE .STK-MED ONE Stop: 01/27/17 11:06 Cefazolin Sodium/Dextrose 2 gm (/ Premix) 50 mls @ 100 [facility]ls[facility] Ropivacaine 49.25 ml/Epinephrine HCl 0.5 mg/Clonidine HCl 80 mcg/ Sodium Chloride 100 mls @ 50 mls/min INJECT ONETIME ONE Stop: 01/27/17 06:01 Last Admin: 01/28/17 16:25 Dose: Not Given Lactated Ringer's (Ringers, Lactated) 1,000 mls @ 100 mls/hr IV ASDIRECTED [facility] Last Admin: 01/28/17 03:59 Dose: 100 mls/hr Acetaminophen 1,000 mg/ Premix 100 mls @ 400 mls/hr IV ONCALL [facility] Last Admin: 01/27/17 09:26 Dose: 400 mls/hr Cefazolin Sodium/Dextrose 1 gm (/ Premix) 50 mls @ 100 [facility]ls[facility] Cefazolin Sodium/Dextrose (Ancef) Confirm Administered Dose 50 mls @ as directed .ROUTE .STK-MED ONE Stop: 01/27/17 09:18 Acetaminophen 1,000 mg/ Premix 100 mls @ 400 mls/hr IV Q6H [facility] Stop: 01/27/17 22:14 Last Admin: 01/27/17 21:41 Dose: 400 mls/hr Cefazolin Sodium/Dextrose 1 gm (/ Premix) 50 mls @ 100 mls/hr IV Q8H [facility] Stop: 01/28/17 03:29 Last Admin: 01/28/17 02:44 Dose: 100 mls/hr Lidocaine HCl (Xylocaine 1%) 10 ml INJECT ONETIME ONE Stop: 01/27/17 16:07 Last Admin: 01/28/17 16:25 Dose: Not Given Methylprednisolone Acetate (Depo-Medrol) 160 mg IM ONETIME ONE Stop: 01/27/17 16:06 Last Admin: 01/28/17 08:02 Dose: 160 mg Midazolam HCl (Versed 1 Mg/Ml) Confirm Administered Dose 2 mg .ROUTE .STK-MED ONE Stop: 01/27/17 09:20 Midazolam HCl (Versed 1 Mg/Ml) Confirm Administered Dose 2 mg .ROUTE .STK-MED ONE Stop: 01/27/17 09:20 Oxycodone HCl (Oxycontin) 20 mg PO ONARRIVE [facility] Last Admin: 01/27/17 09:25 Dose: 20 mg Phenylephrine HCl (Phenylephrine In Ns 100 Mcg/Ml) Confirm Administered Dose 1 mg .ROUTE .STK-MED ONE Stop: 01/27/17 10:54 Propofol (Diprivan 20 Ml) Confirm Administered Dose 200 mg .ROUTE .STK-MED ONE Stop: 01/27/17 09:20 Propofol (Diprivan 20 Ml) Confirm Administered Dose 200 mg .ROUTE .STK-MED ONE Stop: 01/27/17 09:20 Propofol (Diprivan 20 Ml) Confirm Administered Dose 200 mg .ROUTE .STK-MED ONE Stop: 01/27/17 09:21 Tranexamic Acid (Cyklokapron) 4,000 mg IV SEECOMMENT [facility] Tranexamic Acid (Cyklokapron) Confirm Administered Dose 4,000 mg .ROUTE .STK- MED ONE Stop: 01/27/17 09:17 - My Orders Last 24 Hours: Active Orders 24 hr Category Date Time Status Ready for Discharge [RC] PER UNIT ROUTINE Care 01/29/17 07:58 Active HEMOGLOBIN/HEMATOCRIT,HH [HEME] DAILY Lab 01/30/17 07:00 Ordered Albuterol [Ventolin HFA] Med 01/28/17 10:28 Active 1 - 2 gm INH ASDIRECTED PRN Chlorthalidone Med 01/28/17 21:00 Active 25 mg PO BEDTIME Montelukast [Singulair] Med 01/28/17 21:00 Active 10 mg PO BEDTIME Patient's Own Medication [Ptom] Med 01/28/17 10:30 Active 2 each INH DAILY Medication Orders Acetaminophen (Tylenol Extra Strength) 1,000 mg PO Q6H [facility] Last Admin: 01/29/17 09:16 Dose: 1,000 mg Admin: 01/29/17 03:47 Dose: 1,000 mg Admin: 01/28/17 21:11 Dose: 1,000 mg Admin: 01/28/17 15:22 Dose: 1,000 mg Admin: 01/28/17 09:51 Dose: 1,000 mg Admin: 01/28/17 03:14 Dose: 1,000 mg Al Hydroxide/Mg Hydroxide (Mag-Al Plus) 30 ml PO Q4H PRN PRN Reason: indigestion Albuterol (Ventolin Hfa) 1 - 2 gm INH ASDIRECTED PRN PRN Reason: Dyspnea Aspirin (Aspirin) 325 mg PO BID [facility] Last Admin: 01/29/17 09:17 Dose: 325 mg Admin: 01/28/17 21:07 Dose: 325 mg Admin: 01/28/17 08:20 Dose: 325 mg Bisacodyl (Dulcolax) 10 mg RECTAL DAILY PRN PRN Reason: Constipation Chlorthalidone (Chlorthalidone) 25 mg PO BEDTIME [facility] Last Admin: 01/28/17 21:07 Dose: 25 mg Diphenhydramine HCl (Benadryl) 25 - 50 mg PO Q6H PRN PRN Reason: Itching Docusate Sodium (Colace) 100 mg PO BID [facility] Last Admin: 01/29/17 09:17 Dose: 100 mg Admin: 01/28/17 21:07 Dose: 100 mg Admin: 01/28/17 08:21 Dose: 100 mg Admin: 01/27/17 21:40 Dose: 100 mg Montelukast Sodium (Singulair) 10 mg PO BEDTIME [facility] Last Admin: 01/28/17 21:08 Dose: 10 mg Morphine Sulfate (Morphine) 1 - 3 mg IVPUSH Q3H PRN PRN Reason: Pain Last Admin: 01/28/17 11:27 Dose: 3 mg Admin: 01/27/17 22:25 Dose: 3 mg Admin: 01/27/17 17:22 Dose: 3 mg Ondansetron HCl (Zofran) 4 mg IV Q6HR PRN PRN Reason: NAUSEA/VOMITING Oxycodone HCl (Oxycodone) 5 - 10 mg PO Q4H PRN PRN Reason: Pain Last Admin: 01/28/17 02:01 Dose: 10 mg Admin: 01/27/17 14:53 Dose: 10 mg Oxycodone HCl (Oxycontin) 20 mg PO Q12HR [facility] Last Admin: 01/29/17 09:16 Dose: 20 mg Admin: 01/28/17 21:07 Dose: 20 mg Admin: 01/28/17 08:21 Dose: 20 mg Admin: 01/27/17 21:40 Dose: 20 mg Symbicort 160/4.5 2 each INH DAILY [facility] Last Admin: 01/29/17 09:17 Dose: 2 each Admin: 01/28/17 11:30 Dose: 2 each Scopolamine (Transderm-Scop) 1.5 mg TRDERM ONARRIVE [facility] Last Admin: 01/27/17 09:26 Dose: 1.5 mg Sodium Chloride (Saline Flush) 10 ml FLUSH ASDIRECTED PRN PRN Reason: Keep Vein Open Sodium Chloride (Saline Flush) 2.5 ml FLUSH ASDIRECTED PRN PRN Reason: Keep Vein Open - Plan Plan (Free Text/Narrative):: 0810 Patient seen and examined. Agree with above note. Patient states pain is well controlled. Ambulating with PT. Hip feels better after R greater troch injection yesterday. Hgb stable. VSS, afeb Dressing intact. No calf TTP. NVI. POD #2 1. continue PT today--outpatient PT and HEP 2. ASA for DVt prophylaxis 3. continue current pain management 4. f/u as recommended 5. plan d/c home later today
[2017-01-29 09:00] VITALS: BP 135/69
[2017-01-29] MEDS: oxyCODONE ER 20 MG TAB.ER PO SCH (09:16)
[2017-01-29] MEDS: Docusate Sodium 100 MG Cap PO SCH (09:17)
[2017-01-29] MEDS: Aspirin 325 MG Tab PO SCH (09:17)
[2017-01-29] MEDS: SYMBICORT 160/4.5 INH SCH (09:17)
--- NOTE | 2017-01-30 10:15 | PCM.SN ---
- Free Text/Narrative Note: Discharge summary Dressing change prior to discharge. See discharge plan for complete list of discharge medications and instructions. Dictation #: [id number].
--- NOTE | 2017-01-31 04:59 | DISCH ---
DATE OF DISCHARGE: 01/29/2017 PRIMARY CARE PHYSICIAN: Sonny Bajwa ADMITTING DIAGNOSIS: Degenerative joint disease, right knee, tricompartmental. OTHER MEDICAL DIAGNOSIS: Asthma. DISCHARGE DIAGNOSES: 1. Status post right total knee arthroplasty. 2. Asthma. BRIEF HISTORY: Julia is a 71-year-old female who was with complaints of progressive right knee pain. She has failed conservative treatment. She has previously undergone a left total knee arthroplasty and has done well. Due to her lack of response to conservative treatment, surgical intervention was recommended at that time. OPERATION: Right total knee arthroplasty. HOSPITAL COURSE: Pain was controlled with a combination of IV and p.o. pain medications. The patient was given two doses of Ancef postoperatively for 24 hours of antibiotic coverage. The patient was followed by Physical Therapy during her hospital stay. Upon discharge, her vital signs were stable and she is afebrile. Hemoglobin on the day of discharge was 15.9. Aspirin 325 mg p.o. b.i.d., was started on postop day #1 for DVT prophylaxis. Pain is currently controlled with oral medications only. She is tolerating oral intake and ambulating with wheeled walker. She feels comfortable with discharge home today. DISCHARGE MEDICATIONS: 1. Oxycodone 5 mg. 2. OxyContin 20 mg. 3. Colace 100 mg. 4. Aspirin 325 mg. 5. Tylenol 500 mg. DISCHARGE INSTRUCTIONS: 1. The patient will follow up in the clinic on February 06, 2017. This appointment has been made for the patient. 2. Outpatient physical therapy 2 to 3 times per week for 4 to 6 weeks. 3. Polar care to the right knee. 4. YUMIKO hose to bilateral lower extremities, on in the morning and off in the evening. For complete medication reconciliation and discharge instructions, please refer to the patient's EHR. If the patient has questions or concerns prior to followup, she may call the clinic. ALIREZA SANTORO /[id number]
== END 2017-01-29 11:00 | disposition home or self-care (01) | DRG 470 ==
LOC: MW.MS 08:31
PROVIDERS: ADMIT Orthopaedic Surgery; ATTEND Orthopaedic Surgery
PROC: 0SRC0J9 Replacement of Right Knee Joint with Synthetic Substitute, Cemented, Open Approach (ICD-10-PCS; principal; 2017-01-27)
DX: M17.11 Unilateral primary osteoarthritis, right knee (principal); M94.261 Chondromalacia, right knee; M25.761 Osteophyte, right knee; I10 Essential (primary) hypertension; E78.5 Hyperlipidemia, unspecified; J45.909 Unspecified asthma, uncomplicated; Z91.040 Latex allergy status; Z79.899 Other long term (current) drug therapy
CPT/HCPCS: 01402; 36415; 73560-26-RT; 73560-RT; 85014; 85018; 86850; 86900; 86901; 88305; 88311; 97110-GP; 97161-GP; 97530-GP; A9270-GY; C1713; C1776; J0171; J0690; J0735; J1040; J2250; J2270; J2704; J2795; J3010; J7050; J7120

== ENCOUNTER 2017-06-16 06:29 | Day surgery (SDC) | payer MEDICARE, OTHER ==
[~2017-06-16 06:29] MED LIST changes: -Acetaminophen 1,000 MG in Premix Bag 1 BAG IV SCH; -Famotidine 20 MG/2 ML SDV IVPUSH SCH; +Lactated Ringers 1,000 ML IV SCH; -Ropivacaine 49.25 ML, EPINEPHrine 0.5 MG, cloNIDine 80 MCG in Sodium Chloride 0.9% 49.4... INJECT ONE; -Scopolamine 1.5 MG Transdermal Patch TRDERM SCH; -ceFAZolin 1 GM in Premix Bag 1 BAG IV SCH; -ceFAZolin 2 GM in Premix Bag 1 BAG IV SCH; -oxyCODONE ER 20 MG TAB.ER PO SCH
[2017-06-16] MEDS ORDERED: Midazolam 1 MG/ML 2 ML SDV ONE (06:54)
[2017-06-16] MEDS ORDERED: Lidocaine 2% 5 ML SDV ONE (06:54)
[2017-06-16] MEDS ORDERED: Ondansetron 4 MG/2 ML SDV ONE (06:54)
[2017-06-16] MEDS ORDERED: Propofol 200 MG/20 ML SDV ONE (06:54)
[2017-06-16] MEDS ORDERED: fentaNYL 250 MCG/5 ML SDV ONE (06:54)
--- NOTE | 2017-06-16 07:23 | PCM.PREANE ---
Preanesthetic Assessment - Anesthesia/Transfusion/Family Hx Anesthesia History: Prior Anesthesia Without Reaction Other Type of Anesthesia Reaction Comment: Denies any known problem with anesthesia in the past Family History of Anesthesia Reaction: No Transfusion History: No Prior Transfusion(s) - Review of Systems General: No Symptoms Pulmonary: No Symptoms Cardiovascular: No Symptoms Gastrointestinal: No Symptoms Neurological: No Symptoms Other: Reports: None - Physical Assessment NPO Status Date: 06/15/17 O2 Sat by Pulse Oximetry: 95 Respiratory Rate: 16 Vital Signs: Last Vital Signs Temp 36.6 C 06/16/17 06:49 Pulse 75 06/16/17 06:49 Resp 16 06/16/17 06:49 BP 121/72 06/16/17 06:49 Pulse Ox 95 06/16/17 06:49 Height: 1.5 m Weight: 73.482 kg ASA Class: 2 Mental Status: Alert & Oriented x3 Airway Class: Mallampati = 2 Dentition: Reports: Normal Dentition ROM/Head Extension: Full Lungs: Clear to Auscultation, Normal Respiratory Effort Cardiovascular: Regular Rate, Regular Rhythm - Allergies Allergies/Adverse Reactions: Allergies Allergy/AdvReac Type Severity Reaction Status Date / Time latex Allergy Itching Verified 06/11/17 10:27 - Anesthesia Plan Pre-Op Medication Ordered: None - Acknowledgements Anesthesia Type Planned: General Anesthesia Pt an Appropriate Candidate for the Planned Anesthesia: Yes Alternatives and Risks of Anesthesia Discussed w Pt/Guardian: Yes Pt/Guardian Understands and Agrees with Anesthesia Plan: Yes PreAnesthesia Questionnaire HEENT History: Reports: Other (See Below) Other HEENT History: wears glasses Cardiovascular History: Reports: Hypertension Respiratory History: Reports: Asthma Gastrointestinal History: Reports: Hiatal Hernia Genitourinary History: Reports: None BACTERIOLOGIST PHARMACEUTICAL History: Reports: Musculoskeletal History: Reports: Arthritis, Back Pain, Chronic Other Musculoskeletal History: degenerative disc disease Neurological History: Reports: None Psychiatric History: Reports: Anxiety Endocrine/Metabolic History: Reports: Obesity/BMI 30+ Hematologic History: Reports: None Immunologic History: Reports: None Oncologic (Cancer) History: Reports: None Dermatologic History: Reports: None - Past Surgical History Head Surgeries/Procedures: Reports: None Female Surgical History: Reports: Section, D&C Musculoskeletal Surgical History: Reports: Knee Replacement, Shoulder Replacement, Shoulder Surgery Other Musculoskeletal Surgeries/Procedures:: lennie knee replacement, shoulder surgery x3, surgery for hammer toe on left. - SUBSTANCE USE Smoking Status *Q: Never Smoker Second Hand Smoke Exposure: No Days Per Week of Alcohol Use: 3 Number of Drinks Per Day: 2 Total Drinks Per Week: 6 Recreational Drug Use History: No - HOME MEDS Home Medications: Home Meds Chlorthalidone 25 mg PO BEDTIME 09/06/13 [History] Albuterol [Proair HFA] 1 - 2 puff INH ASDIRECTED PRN 06/25/14 [History] Budesonide/Formoterol Fumarate [Symbicort 160-4.5 Mcg Inhaler] 2 puff INH DAILY 01/21/17 [History] Montelukast Sodium 10 mg PO BEDTIME 01/21/17 [History] Aspirin 81 mg PO DAILY 06/11/17 [History] Fish Oil/[place]-3 Fatty Acids [Fish Oil 1,000 MG] 1 tab PO DAILY 06/11/17 [ History] Naproxen Sodium [Aleve] 1 tab PO ASDIRECTED PRN 06/11/17 [History] Sertraline HCl 50 mg PO DAILY 06/11/17 [History] - CURRENT (IN HOUSE) MEDS Current Meds: Current Medications Hydrocodone Bitart/Acetaminophen ([place] 325-5 Mg) 1 - 2 tab PO Q4H PRN PRN Reason: Pain Cefazolin Sodium/Dextrose 1 gm (/ Premix) 50 mls @ 100 mls/hr IV ONCALL TIFFANY Lactated Ringer's (Ringers, Lactated) 1,000 mls @ 100 mls/hr IV ASDIRECTED TIFFANY Last Admin: 06/16/17 06:55 Dose: 100 mls/hr Discontinued Medications Fentanyl (Sublimaze) Confirm Administered Dose 250 mcg .ROUTE .STK-MED ONE Stop: 06/16/17 06:55 Lidocaine (Xylocaine-Mpf 2%) Confirm Administered Dose 5 ml .ROUTE .STK-MED ONE Stop: 06/16/17 06:55 Midazolam HCl (Versed 1 Mg/Ml) Confirm Administered Dose 2 mg .ROUTE .STK-MED ONE Stop: 06/16/17 06:55 Ondansetron HCl (Zofran) Confirm Administered Dose 4 mg .ROUTE .STK-MED ONE Stop: 06/16/17 06:55 Propofol (Diprivan 20 Ml) Confirm Administered Dose 200 mg .ROUTE .STK-MED ONE Stop: 06/16/17 06:55
[2017-06-16] MEDS ORDERED: Lidocaine 1% 20 ML MDV ONE (07:29)
[2017-06-16] MEDS ORDERED: ceFAZolin 1 GM in Premix Bag 1 BAG IV SCH (08:00)
[2017-06-16] MEDS ORDERED: Acetaminophen/HYDROcodone 325-5 MG Tab PO PRN (08:00)
[2017-06-16] MEDS ORDERED: ceFAZolin 1 GM Vial ONE (08:05)
[2017-06-16] MEDS ORDERED: Sodium Chloride 0.9% 20 ML ONE (08:05)
[2017-06-16] MEDS ORDERED: ePHEDrine 50 MG/ML SDV ONE (08:14)
[2017-06-16] MEDS ORDERED: Glycopyrrolate 0.2 MG/ML SDV ONE (08:16)
[2017-06-16] MEDS ORDERED: fentaNYL 100 MCG/2 ML SDV IVPUSH PRN (08:26)
[2017-06-16] MEDS ORDERED: Succinylcholine 200 MG/10 ML MDV ONE (08:36)
[2017-06-16] MEDS ORDERED: Morphine 4 MG/ML Syringe IVPUSH PRN (08:43)
--- NOTE | 2017-06-16 08:54 | PCM.OPNOTE ---
- General Post-Op/Procedure Note Date of Surgery/Procedure: 06/16/17 Operative Procedure(s): R knee arthroscopy with limited synovectomy and TKA manipulation Post-Op Diagnosis: Painful R TKA, arthrofibrosis R TKA Anesthesia Technique: General ET Tube Primary Surgeon: Ivania Cortes Bench Scientist: Janina Ball in mLs: 5 Condition: Good Free Text/Narrative:: tt=17 min #[id number]
--- NOTE | 2017-06-16 09:17 | PCM.POSTAN ---
POST ANESTHESIA ASSESSMENT - MENTAL STATUS Mental Status: Alert, Oriented - RESPIRATORY Respiratory Status: Respiratory Rate WNL, Airway Patent, O2 Saturation Stable - CARDIOVASCULAR CV Status: Pulse Rate WNL, Blood Pressure Stable - GASTROINTESTINAL GI Status: No Symptoms - PAIN Pain Score: 3 - POST OP HYDRATION Hydration Status: Adequate & Stable
--- NOTE | 2017-06-16 09:45 | OR ---
SURGEON: Ivania Cortes MD DATE OF PROCEDURE: 06/16/2017 PREOPERATIVE DIAGNOSES: 1. Right painful total knee arthroplasty. 2. Right knee arthrofibrosis, status post total knee arthroplasty. PROCEDURE PERFORMED: Right knee arthroscopy with limited synovectomy and right total knee arthroplasty manipulation. PRIMARY SURGEON: Ivania Cortes MD BORING MACHINE FEEDER: Janina Ball PA-C ANESTHESIA: General. ESTIMATED BLOOD LOSS: 5 mL. TOURNIQUET TIME: 17 minutes. COMPLICATIONS: None. DVT PROPHYLAXIS: Not indicated. IMPLANTS USED: None. BRIEF HISTORY: Julia is a 72-year-old female who previously underwent a right total knee arthroplasty. She has done fairly well following surgery, however has been bothered by persistent irritation and pain along the medial joint line. She has had extensive physical therapy. She has also noticed some decreased motion. Due to her lack of response to conservative treatment, I did recommend surgical intervention. The risks and goals of procedure were discussed with the patient and were documented preoperatively. She agreed to proceed. DESCRIPTION OF PROCEDURE: The patient was properly identified and brought to the operating room. She was transferred from the OR cart and placed on the operating room table in a supine position. General anesthesia was administered. After adequate anesthesia was obtained, a well-padded tourniquet was applied to the right lower extremity. The right lower extremity was then prepped in standard fashion using ChloraPrep solution. It was then sterilely draped. A time-out was performed to ensure correct site and procedure. Preoperative antibiotics were given. The surgical site had been marked preoperatively. An Esmarch was used to exsanguinate the right lower extremity, and the tourniquet was inflated to 250 mmHg. A lateral portal arthrotomy was established. Blunt trocar and cannula were introduced into the suprapatellar pouch. Camera, inflow, and outflow were assembled. No significant synovitis was noted. There was some scar tissue surrounding the patella. A medial portal arthrotomy was established, and the shaver was inserted. The scar tissue was resected with the 4.5 mm shaver. The patella was then visualized. It appeared to track centrally down the trochlea. I then extended down the lateral gutter. No loose bodies or significant scar tissue was noted. I then extended down the medial gutter. She had extensive scar tissue present along the medial joint line, which appeared to be causing some impingement within the joint. This was resected with the shaver. The knee was then taken through a range of motion. No further impingement was noted. She had some minor scar tissue anteriorly, which was also resected. The notch was visualized. No overgrowth of tissue was noted. The prosthesis along with articular surface was extensively probed. They appeared to be stable. The instruments were then removed from the knee. The portal sites were closed with 3-0 nylon. Lidocaine 1% was injected along the portal tracts. Xeroform gauze was placed over the wound, and a bulky dressing was applied. The end of the table was then placed. Paralytic was administered by the Anesthesia staff. Following this, gentle downward pressure was applied to the knee. I was able to get her to nearly 120 degrees. She did have full extension. She remained stable to varus and valgus stressing. The patient was awakened from her anesthetic and transferred back to the operating room cart. She was brought to recovery room in stable condition. All needle and sponge counts were correct. Preoperative inflammatory labs showed no elevation of her WBC, CRP, or ESR. LIANNA / MAUDE /[id number]
[2017-06-16] MEDS: ceFAZolin 2 GM in Premix Bag 1 BAG IV SCH ×2 (11:38→19:01)
[2017-06-16 16:54] VITALS: BP 126/67
== END 2017-06-16 20:15 | disposition home or self-care (01) ==
LOC: MW.SDS 06:29 → MW.MS 10:07 → MW.SDS 20:15
PROVIDERS: ATTEND Orthopaedic Surgery
DX: T84.84XA Pain due to internal orthopedic prosthetic devices, implants and grafts, initial encounter (principal); M24.661 Ankylosis, right knee; J45.909 Unspecified asthma, uncomplicated; F32.9 Major depressive disorder, single episode, unspecified; E78.5 Hyperlipidemia, unspecified; I10 Essential (primary) hypertension; Z96.651 Presence of right artificial knee joint; Z91.040 Latex allergy status; Z79.82 Long term (current) use of aspirin; Z79.899 Other long term (current) drug therapy
CPT/HCPCS: 27570; 29875; J0330; J0690; J2250; J2405; J3010; J7120; J2704

== ENCOUNTER 2018-06-16 22:54 | Emergency (ER) | payer MEDICARE, OTHER ==
[2018-06-16] MEDS ORDERED: HYDROmorphone 1 MG/ML Syringe IVPUSH ONE (23:07)
[2018-06-16] MEDS ORDERED: Sodium Chloride 0.9% 1,000 ML IV ONE (23:07)
[2018-06-16] MEDS ORDERED: Ondansetron 4 MG/2 ML SDV IVPUSH ONE (23:07)
[2018-06-16] MEDS ORDERED: Ketorolac 30 MG/ML SDV IVPUSH ONE (23:07)
--- NOTE | 2018-06-16 23:09 | EDM.PDOC ---
ED HPI GENERAL MEDICAL PROBLEM - General Chief Complaint: Genitourinary Problem Stated Complaint: LOWER BACK PAIN Time Seen by Provider: 06/16/18 23:03 - History of Present Illness INITIAL COMMENTS - FREE TEXT/NARRATIVE: HISTORY AND PHYSICAL: History of present illness: Patient 73-year-old female with history of degenerative disc disease who presents with concern of right flank pain over last several days she's had no associated nausea vomiting she denies history of urolithiasis there's been no fever chills no trauma no urinary symptoms Review of systems: As per history of present illness and below otherwise all systems reviewed and negative. Past medical history: As per history of present illness and as reviewed below otherwise noncontributory. Surgical history: As per history of present illness and as reviewed below otherwise noncontributory. Social history: No reported history of drug or alcohol abuse. Family history: As per history of present illness and as reviewed below otherwise noncontributory. Physical exam: HEENT: Atraumatic, normocephalic, pupils reactive, negative for conjunctival pallor or scleral icterus, mucous membranes moist, throat clear, neck supple, nontender, trachea midline. Lungs: Clear to auscultation, breath sounds equal bilaterally, chest nontender. Heart: S1S2, regular, negative for clicks, rubs, or JVD. Abdomen: Soft, nondistended, nontender. Negative for masses or hepatosplenomegaly. Right-sided costovertebral tenderness. Pelvis: Stable nontender. Genitourinary: Deferred. Rectal: Deferred. Extremities: Atraumatic, negative for cords or calf pain. Neurovascular unremarkable. Neuro: Awake, alert, oriented. Cranial nerves II through XII unremarkable. Cerebellum unremarkable. Motor and sensory unremarkable throughout. Exam nonfocal. Diagnostics: CBC CMP UA CT abdomen and pelvis Therapeutics: Saline 1 L bolus Dilaudid 1 mg IV and Toradol 30 mg IV Zofran 4 mg IV Impression: #1 right flank pain #2 history of degenerative disc disease Definitive disposition and diagnosis as appropriate pending reevaluation and review of above. Right Flank Pain Score (Numeric/FACES): 10 - Related Data Allergies Allergy/AdvReac Type Severity Reaction Status Date / Time latex Allergy Itching Verified 06/16/18 23:08 Home Meds: Home Meds Albuterol [Proair HFA] 1 - 2 puff INH ASDIRECTED PRN 06/25/14 [History] Budesonide/Formoterol Fumarate [Symbicort 160-4.5 Mcg Inhaler] 2 puff INH DAILY 01/21/17 [History] Montelukast Sodium 10 mg PO BEDTIME 01/21/17 [History] Chlorthalidone 25 mg PO DAILY 06/16/18 [History] Past Medical History HEENT History: Reports: Other (See Below) Other HEENT History: wears glasses Cardiovascular History: Reports: Hypertension Respiratory History: Reports: Asthma Gastrointestinal History: Reports: Hiatal Hernia Genitourinary History: Reports: None 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: Musculoskeletal History: Reports: Arthritis, Back Pain, Chronic Other Musculoskeletal History: degenerative disc disease Neurological History: Reports: None Psychiatric History: Reports: Anxiety Endocrine/Metabolic History: Reports: Obesity/BMI 30+ Hematologic History: Reports: None Immunologic History: Reports: None Oncologic (Cancer) History: Reports: None Dermatologic History: Reports: None - Past Surgical History Head Surgeries/Procedures: Reports: None Female Surgical History: Reports: Section, D&C Musculoskeletal Surgical History: Reports: Knee Replacement, Shoulder Replacement, Shoulder Surgery Other Musculoskeletal Surgeries/Procedures:: lennie knee replacement, shoulder surgery x3, surgery for hammer toe on left. ED ROS GENERAL - Review of Systems Review Of Systems: ROS reveals no pertinent complaints other than HPI. ED EXAM, GENERAL - Physical Exam Exam: See Below (Dictation) Course - Vital Signs Last Recorded V/S: Last Vital Signs Temp 36.2 C 06/16/18 23:05 Pulse 86 06/16/18 23:05 Resp BP 134/68 06/16/18 23:05 Pulse Ox 93 L 06/16/18 23:05 - Orders/Labs/Meds Labs: Laboratory Tests 06/16/18 06/16/18 06/16/18 Range/Units 00:22 23:59 23:59 WBC 13.54 H (4.0-11.0) K/uL RBC 4.93 (4.30-5.90) M/uL Hgb 15.3 (12.0-16.0) g/dL Hct 45.3 (36.0-46.0) % MCV 91.9 (80.0-98.0) fL MCH 31.0 (27.0-32.0) pg MCHC 33.8 (31.0-37.0) g/dL RDW Std Deviation 43.1 (28.0-62.0) fl RDW Coeff of Ammy 13 (11.0-15.0) % Plt Count 274 (150-400) K/uL MPV 10.20 (7.40-12.00) fL Neut % (Auto) 79.2 (48.0-80.0) % Lymph % (Auto) 12.0 L (16.0-40.0) % [place] % (Auto) 6.6 (0.0-15.0) % Eos % (Auto) 1.9 (0.0-7.0) % Baso % (Auto) 0.3 (0.0-1.5) % Neut # (Auto) 10.7 H (1.4-5.7) K/uL Lymph # (Auto) 1.6 (0.6-2.4) K/uL [place] # (Auto) 0.9 H (0.0-0.8) K/uL Eos # (Auto) 0.3 (0.0-0.7) K/uL Baso # (Auto) 0.0 (0.0-0.1) K/uL Sodium 140 (136-145) mmol/L Potassium 3.1 L (3.5-5.1) mmol/L Chloride 100 (98-107) mmol/L Carbon Dioxide 28.2 (21.0-32.0) mmol/L BUN 21 H (7.0-18.0) mg/dL Creatinine 1.0 (0.6-1.0) mg/dL Est Cr Clr Drug Dosing TNP Estimated GFR (MDRD) 54.7 ml/min Glucose 123 H (74-106) mg/dL Calcium 9.3 (8.5-10.1) mg/dL Total Bilirubin 0.7 (0.2-1.0) mg/dL AST 16 (15-37) IU/L ALT 23 (14-63) IU/L Alkaline Phosphatase 88 (46-116) U/L Total Protein 8.5 H (6.4-8.2) g/dL Albumin 3.9 (3.4-5.0) g/dL Globulin 4.6 H (2.6-4.0) g/dL Albumin/Globulin Ratio 0.9 (0.9-1.6) Urine Color YELLOW Urine Appearance SLT CLOUDY Urine pH 5.5 (5.0-8.0) Ur Specific [place] 1.025 (1.001-1.035) Urine Protein NEGATIVE (NEGATIVE) mg/dL Urine Glucose (UA) NEGATIVE (NEGATIVE) mg/dL Urine Ketones NEGATIVE (NEGATIVE) mg/dL Urine Occult Blood NEGATIVE (NEGATIVE) Urine Nitrite NEGATIVE (NEGATIVE) Urine Bilirubin NEGATIVE (NEGATIVE) Urine Urobilinogen 0.2 (<2.0) EU/dL Ur Leukocyte Esterase MODERATE H (NEGATIVE) Urine RBC 0-2 (0-2/HPF) Urine WBC 7-11 (0-5/HPF) Ur Epithelial Cells MODERATE (NONE-FEW) Urine Bacteria FEW (NEGATIVE) Urine Mucus LIGHT (NONE-MOD) Meds: Medications Discontinued Medications Generic Name Dose Route Start Last Admin Trade Name Freq PRN Reason Stop Dose Admin Hydromorphone HCl 1 mg 06/16/18 23:07 06/17/18 00:05 Dilaudid IVPUSH 06/16/18 23:08 1 mg ONETIME ONE Administration Sodium Chloride 1,000 mls @ 999 mls/hr 06/16/18 23:07 06/17/18 00:01 Normal Saline IV 06/17/18 00:07 999 mls/hr STAT ONE Administration Ketorolac Tromethamine 30 mg 06/16/18 23:07 06/17/18 00:03 Toradol IVPUSH 06/16/18 23:08 30 mg ONETIME ONE Administration Ondansetron HCl 4 mg 06/16/18 23:07 06/17/18 00:02 Zofran IVPUSH 06/16/18 23:08 4 mg ONETIME ONE Administration Departure - Departure Time of Disposition: 01:30 Disposition: Home, Self-Care 01 Condition: Good Clinical Impression: UTI, Urinary tract infectious disease - Discharge Information Referrals: PCP,None [Primary Care Provider] - Forms: ED Department Discharge Additional Instructions: The following information is given to patients seen in the emergency department who are being discharged to home. This information is to outline your options for follow-up care. We provide all patients seen in our emergency department with a follow-up referral. The need for follow-up, as well as the timing and circumstances, are variable depending upon the specifics of your emergency department visit. If you don't have a primary care physician on staff, we will provide you with a referral. We always advise you to contact your personal physician following an emergency department visit to inform them of the circumstance of the visit and for follow-up with them and/or the need for any referrals to a consulting specialist. The emergency department will also refer you to a specialist when appropriate. This referral assures that you have the opportunity for followup care with a specialist. All of these measure are taken in an effort to provide you with optimal care, which includes your followup. Under all circumstances we always encourage you to contact your private physician who remains a resource for coordinating your care. When calling for followup care, please make the office aware that this follow-up is from your recent emergency room visit. If for any reason you are refused follow-up, please contact the [facility] emergency department at and asked to speak to the emergency department charge nurse. Levaqcandelario as prescribed follow-up primary medical doctor return as needed as discussed
[2018-06-17 00:48] LABS: CHLORIDE,CL 100 mmol/L (98-107); SODIUM,NA 140 mmol/L (136-145)
--- NOTE | 2018-06-17 01:15 | CT ---
INDICATION: Back abdomen, pelvis pain for 4 days. TECHNIQUE: CT Abdomen and pelvis without i.v. contrast. Coronal and sagittal reformats were obtained. COMPARISON: None FINDINGS: Lower chest: Minimal subpleural senescent pulmonary fibrosis is seen in the lung bases. Liver: Mild fatty infiltration of the liver is noted. Spleen: Unremarkable. Pancreas: Unremarkable. Gallbladder: Unremarkable. Kidney: Unremarkable. No kidney or ureteral stones or obstruction seen. Adrenal: Unremarkable. Bowel: Small sliding type esophageal hiatal hernia (type I) is present. A moderate amount of stool is present in the ascending colon and cecum. The appendix is not identified. Vascular: Unremarkable. Lymph: Unremarkable. Peritoneum: Unremarkable. No pneumoperitoneum is seen. No significant ascites is noted. Pelvis: Unremarkable. Soft tissue: Unremarkable. Bone: Unremarkable for age. IMPRESSION: 1. Unremarkable with no CT correlate for the patient`s symptoms seen. Dictated by Agustín Currie MD @ 06/17/2018 1:13:47 AM Please note that all CT scans at this facility use dose modulation, iterative reconstruction, and/or weight-based dosing when appropriate to reduce radiation dose to as low as reasonably achievable. Dictated by: Agustín Currie MD @ 06/17/2018 01:13:51 (Electronically Signed)
[2018-06-17 02:09] VITALS: BP 109/62
== END 2018-06-17 01:43 | disposition home or self-care (01) ==
LOC: MW.ED 22:54
DX: N39.0 Urinary tract infection, site not specified (principal); I10 Essential (primary) hypertension; J45.909 Unspecified asthma, uncomplicated; F41.9 Anxiety disorder, unspecified; Z91.040 Latex allergy status; Z79.899 Other long term (current) drug therapy
CPT/HCPCS: 36415; 74176; 80053; 81001; 85025; 87086; 96361; 96374; 96375; 99284; J1170; J1885; J2405; J7040; 99283

== ENCOUNTER 2018-11-10 09:56 | Day surgery (SDC) | payer MEDICARE, OTHER ==
[~2018-11-10 09:56] MED LIST changes: +Sodium Chloride 0.9% 10 ML SDV IV PRN; +Sodium Chloride 0.9% 10 ML Syringe FLUSH PRN; +Sodium Chloride 0.9% 2.5 ML Syringe FLUSH PRN
[2018-11-10] MEDS ORDERED: Propofol 200 MG/20 ML SDV ONE (10:00)
[2018-11-10] MEDS ORDERED: Midazolam 1 MG/ML 2 ML SDV ONE (10:00)
[2018-11-10] MEDS ORDERED: Glycopyrrolate 0.2 MG/ML SDV ONE (10:01)
[2018-11-10] MEDS ORDERED: Lidocaine 2% 5 ML SDV ONE (10:01)
--- NOTE | 2018-11-10 10:33 | PCM.PREANE ---
Preanesthetic Assessment - Anesthesia/Transfusion/Family Hx Anesthesia History: Prior Anesthesia Without Reaction Other Type of Anesthesia Reaction Comment: Denies any known problem with anesthesia in the past Family History of Anesthesia Reaction: No Transfusion History: No Prior Transfusion(s) - Review of Systems General: No Symptoms Pulmonary: No Symptoms Cardiovascular: No Symptoms Gastrointestinal: Nausea Neurological: No Symptoms Other: Reports: None - Physical Assessment Height: 4 ft 11 in Weight: 72.575 kg ASA Class: 2 Mental Status: Alert & Oriented x3 Airway Class: Mallampati = 2 Dentition: Reports: Normal Dentition ROM/Head Extension: Full Lungs: Clear to Auscultation, Normal Respiratory Effort Cardiovascular: Regular Rate, Regular Rhythm - Allergies Allergies/Adverse Reactions: Allergies Allergy/AdvReac Type Severity Reaction Status Date / Time latex Allergy Itching Verified 11/04/18 14:48 - Blood Blood Available: No - Anesthesia Plan Pre-Op Medication Ordered: None - Acknowledgements Anesthesia Type Planned: General Anesthesia Pt an Appropriate Candidate for the Planned Anesthesia: Yes Alternatives and Risks of Anesthesia Discussed w Pt/Guardian: Yes Pt/Guardian Understands and Agrees with Anesthesia Plan: Yes Additional Comments: PMH: quit smoking 50 yr ago, last asthmatic bronchitis was 2 years ago, htn, anx /dep, hypoK (3.4 in June 2018), CKD3 with gfr=49 in june, PLAN: tiva PreAnesthesia Questionnaire HEENT History: Reports: Other (See Below) Other HEENT History: wears glasses Cardiovascular History: Reports: Hypertension Respiratory History: Reports: Asthma Gastrointestinal History: Reports: GERD, Hiatal Hernia Genitourinary History: Reports: None 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: Musculoskeletal History: Reports: Back Pain, Chronic, Osteoarthritis Other Musculoskeletal History: degenerative disc disease Neurological History: Reports: Other (See Below) Other Neuro History: degenerative disc disease Psychiatric History: Reports: Anxiety, Other (See Below) Other Psychiatric History: hx of Claustrophobia Endocrine/Metabolic History: Reports: Obesity/BMI 30+ Hematologic History: Reports: None Immunologic History: Reports: None Oncologic (Cancer) History: Reports: None Dermatologic History: Reports: None - Infectious Disease History Infectious Disease History: Reports: Chicken Pox, Measles, Mumps - Past Surgical History Head Surgeries/Procedures: Reports: None Female Surgical History: Reports: Section Musculoskeletal Surgical History: Reports: Arthroscopic Knee, Knee Replacement, Shoulder Replacement, Other (See Below) Other Musculoskeletal Surgeries/Procedures:: bilateral TKA, Right TSA, hx of left bunionectomy with Hammer toe correction - SUBSTANCE USE Smoking Status *Q: Former Smoker Tobacco Use Within Last Twelve Months: No Recreational Drug Use History: No - HOME MEDS Home Medications: Home Meds Budesonide/Formoterol Fumarate [Symbicort 160-4.5 Mcg Inhaler] 2 puff INH BID [History] Montelukast Sodium 10 mg PO BEDTIME 01/21/17 [History] Chlorthalidone 25 mg PO DAILY 06/16/18 [History] Albuterol [Ventolin HFA] 1 puff INH QID PRN 11/04/18 [History] Better Women 1 tab PO DAILY 11/04/18 [History] Potassium Chloride [Klor-Con 10] 10 meq PO DAILY 11/04/18 [History] Sertraline HCl 50 mg PO DAILY 11/04/18 [History] - CURRENT (IN HOUSE) MEDS Current Meds: Current Medications Lactated Ringer's (Ringers, Lactated) 1,000 mls @ 125 mls/hr IV ASDIRECTED TIFFANY Sodium Chloride (Saline Flush) 10 ml FLUSH ASDIRECTED PRN PRN Reason: Keep Vein Open Sodium Chloride (Saline Flush) 2.5 ml FLUSH ASDIRECTED PRN PRN Reason: Keep Vein Open Sodium Chloride (Saline Flush) 10 ml FLUSH ASDIRECTED PRN PRN Reason: Keep Vein Open Sodium Chloride (Saline Flush) 2.5 ml FLUSH ASDIRECTED PRN PRN Reason: Keep Vein Open Sodium Chloride (Normal Saline) 10 ml IV ASDIRECTED PRN PRN Reason: IV Use Discontinued Medications Glycopyrrolate (Robinul) Confirm Administered Dose 0.2 mg .ROUTE .STK-MED ONE Stop: 11/10/18 10:02 Lidocaine (Xylocaine-Mpf 2%) Confirm Administered Dose 5 ml .ROUTE .STK-MED ONE Stop: 11/10/18 10:02 Midazolam HCl (Versed 1 Mg/Ml) Confirm Administered Dose 2 mg .ROUTE .STK-MED ONE Stop: 11/10/18 10:01 Propofol (Diprivan 20 Ml) Confirm Administered Dose 400 mg .ROUTE .STK-MED ONE Stop: 11/10/18 10:01
[2018-11-10 11:07] LABS: BLOOD UREA NITROGEN,BUN 9 mg/dL (7.0-18.0); CARBON DIOXIDE,CO2 28.6 mmol/L (21.0-32.0); CHLORIDE,CL 101 mmol/L (98-107); GLUCOSE RANDOM 103 mg/dL (74-106); POTASSIUM,K 3.6 mmol/L (3.5-5.1); SODIUM,NA 140 mmol/L (136-145)
--- NOTE | 2018-11-10 13:18 | PCM.OPNOTE ---
- General Post-Op/Procedure Note Date of Surgery/Procedure: 11/10/18 Operative Procedure(s): Diagnostic EGD and screening colonoscopy Findings: Normal EGD, sigmoid colon polyp Pre Op Diagnosis: Nausea, screening colonoscopy Post-Op Diagnosis: Sigmoid colon polyp Anesthesia Technique: LEANNA Primary Surgeon: Neelam Peterson Condition: Good
[2018-11-10 14:29] VITALS: BP 135/62; PULSE 78
--- NOTE | 2018-11-10 14:44 | PCM48HPAN ---
Post Anesthesia Note - EVALUATION WITHIN 48HRS OF ANESTHETIC Vital Signs in Normal Range: Yes Patient Participated in Evaluation: Yes Respiratory Function Stable: Yes Airway Patent: Yes Cardiovascular Function Stable: Yes Hydration Status Stable: Yes Pain Control Satisfactory: Yes Nausea and Vomiting Control Satisfactory: Yes Mental Status Recovered: Yes Vital Signs: Last Vital Signs Temp 97.0 F 11/10/18 10:36 Pulse 78 11/10/18 13:50 Resp 14 11/10/18 13:50 BP 135/62 11/10/18 13:50 Pulse Ox 95 11/10/18 13:50
--- NOTE | 2018-11-10 14:44 | PCM.POSTAN ---
POST ANESTHESIA ASSESSMENT - MENTAL STATUS Mental Status: Alert, Oriented - VITAL SIGNS Vital Signs: Last Vital Signs Temp 97.0 F 11/10/18 10:36 Pulse 78 11/10/18 13:50 Resp 14 11/10/18 13:50 BP 135/62 11/10/18 13:50 Pulse Ox 95 11/10/18 13:50 - RESPIRATORY Respiratory Status: Respiratory Rate WNL, Airway Patent, O2 Saturation Stable - CARDIOVASCULAR CV Status: Pulse Rate WNL, Blood Pressure Stable - GASTROINTESTINAL GI Status: No Symptoms - POST OP HYDRATION Hydration Status: Adequate & Stable
--- NOTE | 2018-11-10 22:15 | OR ---
SURGEON: WHIT QUINONES MD DATE OF PROCEDURE: 11/10/2018 PREOPERATIVE DIAGNOSIS: Intractable nausea, screening colonoscopy. POSTOPERATIVE DIAGNOSIS: Normal EGD, sigmoid colon polyp. PROCEDURE PERFORMED: Diagnostic EGD and screening colonoscopy. ANESTHESIA: MAC. INSTRUMENT USED: Olympus endoscope and colonoscope. EXTENT OF EXAM: To the second portion of duodenum, to the cecum. PREPARATION: Good. LIMITATIONS: None. INDICATION FOR EXAMINATION: The patient is a 73-year-old female, who presents with intractable nausea for the past three weeks. She has also never had a colonoscopy. The patient and I discussed the need for diagnostic EGD and screening colonoscopy. I explained the procedure, expected perioperative course, and risks including bleeding, infection, or damage to surrounding structures including perforation. The patient verbalized understanding and wishes to proceed. PROCEDURE IN DETAIL: The patient was brought to the endoscopy suite and placed in a left lateral decubitus position. A time-out was completed verifying the patient's name, age, date of , allergies, and procedure to be performed. Monitored anesthesia care was induced and a bite block was placed in the patient's mouth. Continuous oxygen was provided via nasal cannula throughout the procedure. After adequate sedation was achieved, a well lubricated endoscope was placed in the patient's mouth and advanced under direct visualization to the second portion of the duodenum. This appeared normal and a photograph was taken. Scope was then fully withdrawn while examining the color, texture, anatomy, and integrity mucosa of the upper GI tract. The duodenum appeared normal. The scope was brought into the stomach and a photograph taken of the pylorus and GE junction. Both appeared normal. There was no evidence of gross ulceration or inflammation of the stomach lining. Biopsies were taken of the gastric antrum body, and fundus, and sent for histologic review and H. pylori testing. The scope was then brought into the distal esophagus and a photograph taken of the Z-line. This appeared normal. The esophageal mucosa was free of pathology. The scope was removed and this portion of procedure was terminated. A digital rectal exam was performed. This exam was within normal limits. A well lubricated colonoscope was inserted in the rectum and advanced under direct visualization to the level of the cecum. The cecum was identified by both visual and anatomic landmarks. A photograph was taken of the cecal cap, however, I was unable to retroflex the scope within the cecum due to looping of the scope more proximally. The scope was then fully withdrawn while examining the color, texture, anatomy, and integrity of the mucosa from the cecum to the anal canal. The patient was found to have a small sessile polyp in the distal sigmoid colon. This was removed using a cold biopsy forceps. It was labeled as sigmoid colon polyp. The scope was brought into the rectum and retroflexed to allow visualization of the anal canal opening. This appeared normal and a photograph was taken. The scope was then straightened out and fully withdrawn. The cecum to anus time was 7 minutes. The patient tolerated the procedure well and taken to PACU in stable condition. ENDOSCOPIC DIAGNOSES: 1. Normal EGD. 2. Sigmoid colon polyp. RECOMMENDATIONS: Follow up in clinic in 2 weeks. WICHO SANTORO /[id number]
== END 2018-11-10 14:24 | disposition home or self-care (01) ==
LOC: MW.SDS 09:56
PROVIDERS: ATTEND Surgery
DX: K63.5 Polyp of colon (principal); R19.7 Diarrhea, unspecified; K29.50 Unspecified chronic gastritis without bleeding; B96.81 Helicobacter pylori [H. pylori] as the cause of diseases classified elsewhere; I10 Essential (primary) hypertension; E78.5 Hyperlipidemia, unspecified; J45.909 Unspecified asthma, uncomplicated; F41.9 Anxiety disorder, unspecified; F32.9 Major depressive disorder, single episode, unspecified; Z91.040 Latex allergy status; Z87.891 Personal history of nicotine dependence; Z79.899 Other long term (current) drug therapy
CPT/HCPCS: 36415; 43239; 45380; 80048; J2001; J2250; J2704; J3490; J7120

== ENCOUNTER 2019-11-09 08:52 | Day surgery (SDC) | payer MEDICARE, OTHER ==
[~2019-11-09 08:52] MED LIST changes: +Midazolam 1 MG/ML 2 ML SDV ONE; +Propofol 200 MG/20 ML SDV ONE; +fentaNYL 100 MCG/2 ML SDV ONE
--- NOTE | 2019-11-09 09:31 | PCM.PREANE ---
Preanesthetic Assessment - Anesthesia/Transfusion/Family Hx Anesthesia History: Prior Anesthesia Without Reaction Other Type of Anesthesia Reaction Comment: Denies any known problem with anesthesia in the past Family History of Anesthesia Reaction: No Transfusion History: No Prior Transfusion(s) Intubation History: Unknown - Review of Systems General: No Symptoms Pulmonary: No Symptoms Cardiovascular: No Symptoms Gastrointestinal: Other (bloating/indigestion) Neurological: No Symptoms Other: Reports: None - Physical Assessment Height: 5 ft Weight: 76.204 kg ASA Class: 2 Mental Status: Alert & Oriented x3 Airway Class: Mallampati = 2 Dentition: Reports: Normal Dentition, Hunker(s) (multiple crowns uper and lower (back side)) Thyro-Mental Finger Breadths: 3 Mouth Opening Finger Breadths: 2 ROM/Head Extension: Limited/Partial Lungs: Clear to Auscultation, Normal Respiratory Effort Cardiovascular: Regular Rate, Regular Rhythm - Allergies Allergies/Adverse Reactions: Allergies Allergy/AdvReac Type Severity Reaction Status Date / Time latex Allergy Itching Verified 11/02/19 14:46 - Blood Blood Available: No - Anesthesia Plan Pre-Op Medication Ordered: None - Acknowledgements Anesthesia Type Planned: MAC Pt an Appropriate Candidate for the Planned Anesthesia: Yes Alternatives and Risks of Anesthesia Discussed w Pt/Guardian: Yes Pt/Guardian Understands and Agrees with Anesthesia Plan: Yes PreAnesthesia Questionnaire HEENT History: Reports: Other (See Below) Other HEENT History: wears glasses Cardiovascular History: Reports: Hypertension, Other (See Below) (h/o increased cholesterol) Respiratory History: Reports: Asthma Gastrointestinal History: Reports: GERD, Helicobacter Pylori, Hiatal Hernia Genitourinary History: Reports: None [employer]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: Musculoskeletal History: Reports: Osteoarthritis Other Musculoskeletal History: degenerative disc disease Neurological History: Reports: None Psychiatric History: Reports: Anxiety, Other (See Below) Other Psychiatric History: hx of Claustrophobia Endocrine/Metabolic History: Reports: Obesity/BMI 30+ (BMI 32.8) Hematologic History: Reports: None Immunologic History: Reports: None Oncologic (Cancer) History: Reports: None Dermatologic History: Reports: None - Infectious Disease History Infectious Disease History: Reports: Chicken Pox, Measles, Mumps - Past Surgical History Head Surgeries/Procedures: Reports: None HEENT Surgical History: Reports: None Cardiovascular Surgical History: Reports: None Respiratory Surgical History: Reports: None GI Surgical History: Reports: Colonoscopy, EGD (last year) Female Surgical History: Reports: Section (x1) Endocrine Surgical History: Reports: None Neurological Surgical History: Reports: None Musculoskeletal Surgical History: Reports: Arthroscopic Knee, Knee Replacement, Shoulder Replacement ('09), Shoulder Surgery, Other (See Below) Other Musculoskeletal Surgeries/Procedures:: bilateral TKA - left 10 years ago, right 3 years ago, right shoulder surgery x3, hx of left bunionectomy with Hammer toe correction Oncologic Surgical History: Reports: None Dermatological Surgical History: Reports: None - SUBSTANCE USE Smoking Status *Q: Never Smoker Recreational Drug Use History: No - HOME MEDS Home Medications: Home Meds Budesonide/Formoterol Fumarate [Symbicort 160-4.5 Mcg Inhaler] 2 puff INH BID 01/21/17 [History] Montelukast Sodium 10 mg PO BEDTIME 01/21/17 [History] Chlorthalidone 25 mg PO DAILY 06/16/18 [History] Albuterol [Ventolin HFA] 1 puff INH QID PRN 11/04/18 [History] Potassium Chloride [Klor-Con 10] 10 meq PO DAILY 11/04/18 [History] Sertraline HCl 75 mg PO DAILY 11/04/18 [History] Naproxen Sodium [Aleve] 1 tab PO ASDIRECTED PRN 11/02/19 [History] - CURRENT (IN HOUSE) MEDS Current Meds: Current Medications Lactated Ringer's (Ringers, Lactated) 1,000 mls @ 125 mls/hr IV ASDIRECTED TIFFANY Sodium Chloride (Saline Flush) 10 ml FLUSH ASDIRECTED PRN PRN Reason: Keep Vein Open Sodium Chloride (Saline Flush) 2.5 ml FLUSH ASDIRECTED PRN PRN Reason: Keep Vein Open Sodium Chloride (Normal Saline) 10 ml IV ASDIRECTED PRN PRN Reason: IV Use Discontinued Medications Fentanyl (Sublimaze) Confirm Administered Dose 100 mcg .ROUTE .STK-MED ONE Stop: 11/09/19 07:31 Lidocaine HCl (Xylocaine-Mpf 1%) Confirm Administered Dose 5 ml .ROUTE .STK-MED ONE Stop: 11/09/19 07:31 Midazolam HCl (Versed 1 Mg/Ml) Confirm Administered Dose 2 mg .ROUTE .STK-MED ONE Stop: 11/09/19 07:31 Propofol (Diprivan 20 Ml) Confirm Administered Dose 200 mg .ROUTE .[facility] ONE Stop: 11/09/19 07:31
--- NOTE | 2019-11-09 11:31 | PCM.OPNOTE ---
- General Post-Op/Procedure Note Date of Surgery/Procedure: 11/09/19 Operative Procedure(s): Diagnostic EGD with biopsy Findings: Normal appearing gastric mucosa Pre Op Diagnosis: History of H pylori and focal intestinal metaplasia Post-Op Diagnosis: same Anesthesia Technique: MAC Primary Surgeon: Neelam Peterson Condition: Good
--- NOTE | 2019-11-09 11:46 | PCM.POSTAN ---
POST ANESTHESIA ASSESSMENT - MENTAL STATUS Mental Status: Alert, Oriented - VITAL SIGNS Vital Signs: Last Vital Signs Temp 36.1 C 11/09/19 11:28 Pulse 65 11/09/19 11:40 Resp 12 11/09/19 11:40 BP 118/55 L 11/09/19 11:40 Pulse Ox 96 11/09/19 11:40 - RESPIRATORY Respiratory Status: Respiratory Rate WNL, Airway Patent, O2 Saturation Stable - CARDIOVASCULAR CV Status: Pulse Rate WNL, Blood Pressure Stable - GASTROINTESTINAL GI Status: No Symptoms - PAIN Pain Score: 0 - POST OP HYDRATION Hydration Status: Adequate & Stable - OBSERVATIONS Free Text/Narrative:: No anesthesia problems
--- NOTE | 2019-11-09 11:59 | PCM48HPAN ---
Post Anesthesia Note - EVALUATION WITHIN 48HRS OF ANESTHETIC Vital Signs in Normal Range: Yes Patient Participated in Evaluation: Yes Respiratory Function Stable: Yes Airway Patent: Yes Cardiovascular Function Stable: Yes Hydration Status Stable: Yes Pain Control Satisfactory: Yes Nausea and Vomiting Control Satisfactory: Yes Mental Status Recovered: Yes Vital Signs: Last Vital Signs Temp 36.1 C 11/09/19 11:28 Pulse 65 11/09/19 11:40 Resp 12 11/09/19 11:40 BP 118/55 L 11/09/19 11:40 Pulse Ox 96 11/09/19 11:40 - COMMENTS/OBSERVATIONS Free Text/Narrative:: No anesthesia problems
[2019-11-09 14:39] VITALS: BP 112/70; PULSE 66
--- NOTE | 2019-11-09 18:02 | OR ---
SURGEON: NEELAM PETERSON MD DATE OF PROCEDURE: 11/09/2019 PREOPERATIVE DIAGNOSES: History of Helicobacter pylori, focal intestinal metaplasia. POSTOPERATIVE DIAGNOSES: History of Helicobacter pylori, focal intestinal metaplasia. PROCEDURE PERFORMED: Diagnostic esophagogastroduodenoscopy with biopsies. PRIMARY SURGEON: Neelam Peterson MD ANESTHESIA: MAC. INSTRUMENT USED: Olympus endoscope. EXTENT OF EXAM: To the second portion of duodenum. PREPARATION: Good. LIMITATIONS: None. INDICATIONS FOR EXAMINATION: The patient is a 74-year-old female who last year was diagnosed with H. pylori infection. Biopsies of her gastric mucosa showed evidence of focal intestinal metaplasia. The patient was treated and now feels better. She is here for followup EGD to look for signs of focal intestinal metaplasia again. The patient and I discussed the procedure; expected perioperative course; and risks including bleeding, infection, or damage to surrounding structures including perforation. The patient verbalized understanding and wishes to proceed. PROCEDURE IN DETAIL: The patient was brought into the endoscopy suite and placed in a beach chair position. A time-out was completed verifying the patient's name, age, date of , allergies, and procedure to be performed. Monitored anesthesia care was induced and a bite block was placed in the patient's mouth. Continuous oxygen was provided via nasal cannula throughout the procedure. After adequate sedation was achieved, a well-lubricated endoscope was placed in the patient's mouth and advanced under direct visualization to the second portion of duodenum. This appeared normal and a photograph was taken. The scope was then fully withdrawn while examining the color, texture, anatomy, and integrity of the mucosa of the upper GI tract. The duodenal mucosa appeared normal. The scope was brought into the stomach and a photograph was taken of the pylorus and GE junction. Both appeared normal. I closely inspected the gastric mucosa. The gastric mucosa appeared healthy and pink with no evidence of ulceration, inflammation, or abnormal appearing tissue. Biopsies were taken of the gastric antrum, body, and fundus and sent for histologic review and H. pylori testing. The scope was brought into the distal esophagus and a photograph was taken of the Z-line. This appeared normal. The remainder of the esophageal mucosa appeared free of pathology. The scope was removed and the procedure terminated. The patient tolerated the procedure well and was transferred to the PACU in stable condition. ENDOSCOPIC DIAGNOSES: History of Helicobacter pylori and focal intestinal metaplasia. RECOMMENDATIONS: Follow up in clinic in 2 weeks. WICHO / MAUDE /[id number]
== END 2019-11-09 12:00 | disposition home or self-care (01) ==
LOC: MW.SDS 08:52
PROVIDERS: ATTEND Surgery
DX: K29.50 Unspecified chronic gastritis without bleeding (principal); K31.89 Other diseases of stomach and duodenum; I10 Essential (primary) hypertension; J45.909 Unspecified asthma, uncomplicated; E78.5 Hyperlipidemia, unspecified; F32.9 Major depressive disorder, single episode, unspecified; K21.9 Gastro-esophageal reflux disease without esophagitis; F41.9 Anxiety disorder, unspecified; E66.9 Obesity, unspecified; Z68.32 Body mass index [BMI] 32.0-32.9, adult; Z91.040 Latex allergy status; Z79.899 Other long term (current) drug therapy; Z87.891 Personal history of nicotine dependence; Z86.19 Personal history of other infectious and parasitic diseases
CPT/HCPCS: 43239; 88305; 88312; J2001; J2704; J3010; J7120; 00731; J2250

== ENCOUNTER 2020-06-01 15:39 | Emergency (ER) | payer MEDICARE, OTHER ==
[2020-06-01] MEDS ORDERED: Clindamycin HCl 150 MG Cap PO ONE (16:10)
[2020-06-01] MEDS ORDERED: Diphtheria,Pertussis(Acell),Tetanus Vaccine 0.5 ML Syringe IM ONE (16:15)
--- NOTE | 2020-06-01 16:15 | EDM.PDOC ---
ED HPI GENERAL MEDICAL PROBLEM - General Chief Complaint: Head Injury Stated Complaint: FELL DOWN CUT INNER MOUTH LIP AREA Time Seen by Provider: 06/01/20 15:59 - History of Present Illness INITIAL COMMENTS - FREE TEXT/NARRATIVE: History of present illness: [] The patient had a fall. She went down steps and felt lightheaded then she was on the ground and had abrasion on her left wrist and abrasion on her upper lip and had bit into her lower lip. Mild neck pain. She said a sudden sharp back pain initiated the process of the lightheadedness and that she suffers recurring back pain before the fall with no new apparent injury according to her. Review of systems: As per history of present illness and below otherwise all systems reviewed and negative. Past medical history: As per history of present illness and as reviewed below otherwise noncontributory. Surgical history: As per history of present illness and as reviewed below otherwise noncontributory. Social history: No reported history of drug or alcohol abuse. Family history: As per history of present illness and as reviewed below otherwise noncontributory. Physical exam: Constitutional - well developed, well-nourished and in no acute distress HEENT -abrasion of the upper lip is full-thickness but not across the room milium border. Laceration in the lower lip is 1.2 cm in length and full- thickness but involves the mucosa only. Normocephalic, no other evidence of trauma - external nose and mouth normal - no mass in neck and no JVD - mucosae moist EYES - full EOM, PERRL, no icterus - no evidence of inflammation, injection, or drainage Respiratory - no respiratory distress, equal bilateral expansion, lungs clear to auscultation and no abnormal lung sounds Cardiovascular - Regular Rhythm with S1 and S2 appreciated and no murmur, gallop or rub. GI - abdomen soft without distension or organomegaly - normal bowel sounds - no guard or rebound Musculoskeletal no gross deformity of long bones or joints - no tenderness, swelling or edema Neurologic - Alert and oriented times four - CN II-XII grossly intact - motor sensory and coordination symmetrically normal Psychiatric - appropriate mood and affect with normal thought content Hematologic - No petechiae or purpura - mucosa appropriate color and sclera not pale - normal nail bed color and refill Integument - no rash or evidence of trauma - normal turgor Diagnostics: [] EKG will be done because the lightheadedness followed by a syncopal episode may have represented a cardiac event. The patient will have a CT of the head because more than likely she had a vasovagal response to the pain in her back and then had a fall with blunt trauma to the face causing loss of consciousness. She was awake by the time the got there but it still warrants a CT. Therapeutics: [] Impression: [] Plan: [] Definitive disposition and diagnosis as appropriate pending reevaluation and review of above. Patient Lip Pain Score (Numeric/FACES): 4 - Related Data Allergies Allergy/AdvReac Type Severity Reaction Status Date / Time latex Allergy Itching Verified 06/01/20 16:14 Home Meds: Home Meds Budesonide/Formoterol Fumarate [Symbicort 160-4.5 Mcg Inhaler] 2 puff INH BID 01/21/17 [History] Montelukast Sodium 10 mg PO BEDTIME 01/21/17 [History] Chlorthalidone 25 mg PO DAILY 06/16/18 [History] Sertraline HCl 75 mg PO DAILY 11/04/18 [History] Clindamycin HCl 300 mg PO TID 5 Days #15 capsule 06/01/20 [Rx] Past Medical History HEENT History: Reports: Other (See Below) Other HEENT History: wears glasses Cardiovascular History: Reports: Hypertension, Other (See Below) (h/o increased cholesterol) Respiratory History: Reports: Asthma Gastrointestinal History: Reports: GERD, Helicobacter Pylori, Hiatal Hernia Genitourinary History: Reports: None 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: Musculoskeletal History: Reports: Osteoarthritis Other Musculoskeletal History: degenerative disc disease Neurological History: Reports: None Psychiatric History: Reports: Anxiety, Other (See Below) Other Psychiatric History: hx of Claustrophobia Endocrine/Metabolic History: Reports: Obesity/BMI 30+ (BMI 32.8) Hematologic History: Reports: None Immunologic History: Reports: None Oncologic (Cancer) History: Reports: None Dermatologic History: Reports: None - Infectious Disease History Infectious Disease History: Reports: Chicken Pox, Measles, Mumps - Past Surgical History Head Surgeries/Procedures: Reports: None HEENT Surgical History: Reports: None Cardiovascular Surgical History: Reports: None Respiratory Surgical History: Reports: None GI Surgical History: Reports: Colonoscopy, EGD (last year) Female Surgical History: Reports: Section (x1) Endocrine Surgical History: Reports: None Neurological Surgical History: Reports: None Musculoskeletal Surgical History: Reports: Arthroscopic Knee, Knee Replacement, Shoulder Replacement ('09), Shoulder Surgery, Other (See Below) Other Musculoskeletal Surgeries/Procedures:: bilateral TKA - left 10 years ago, right 3 years ago, right shoulder surgery x3, hx of left bunionectomy with Hammer toe correction Oncologic Surgical History: Reports: None Dermatological Surgical History: Reports: None Social & Family History - Caffeine Use Caffeine Use: Reports: Coffee ED ROS GENERAL - Review of Systems Review Of Systems: Comprehensive ROS is negative, except as noted in HPI. ED EXAM, HEAD INJURY - Physical Exam Exam: See Below Text/Narrative:: My history and physical includes the physical examination. #1 Interpretation EKG Interpretation Comments: He did not 1615 hrs. shows sinus rhythm with a heart rate of 75. The axis is - 34. The QRS is large as in left ventricular hypertrophy. There is an old inferior infarct. Compared to 01/07/2017 no change impression no acute injury Course - Vital Signs Text/Narrative:: Patient understands her instructions. She has potassium pills at home. She will restart them and follow-up with her primary doctor. Discharged with instructions to eat a liquid diet for few days and take her antibiotics. Last Recorded V/S: Last Vital Signs Temp 36.3 C 06/01/20 16:17 Pulse 94 06/01/20 16:17 Resp 16 06/01/20 16:17 BP 154/67 H 06/01/20 16:17 Pulse Ox 95 06/01/20 16:17 - Orders/Labs/Meds Orders: Active Orders 24 hr Category Date Time Status Communication Order [RC] STAT Care 06/01/20 16:10 Active EKG Documentation Completion [RC] AM Care 06/01/20 16:08 Active Vaccines to be Administered [RC] PER UNIT ROUTINE Care 06/01/20 16:15 Active Labs: Laboratory Tests 06/01/20 06/01/20 Range/Units 16:30 16:30 WBC 9.75 (4.0-11.0) K/uL RBC 4.72 (4.30-5.90) M/uL Hgb 14.7 (12.0-16.0) g/dL Hct 44.4 (36.0-46.0) % MCV 94.1 (80.0-98.0) fL MCH 31.1 (27.0-32.0) pg MCHC 33.1 (31.0-37.0) g/dL RDW Std Deviation 47.6 (28.0-62.0) fl RDW Coeff of Ammy 14 (11.0-15.0) % Plt Count 249 (150-400) K/uL MPV 10.50 (7.40-12.00) fL Neut % (Auto) 69.0 (48.0-80.0) % Lymph % (Auto) 21.4 (16.0-40.0) % [place] % (Auto) 5.7 (0.0-15.0) % Eos % (Auto) 3.4 (0.0-7.0) % Baso % (Auto) 0.5 (0.0-1.5) % Neut # (Auto) 6.7 H (1.4-5.7) K/uL Lymph # (Auto) 2.1 (0.6-2.4) K/uL [place] # (Auto) 0.6 (0.0-0.8) K/uL Eos # (Auto) 0.3 (0.0-0.7) K/uL Baso # (Auto) 0.1 (0.0-0.1) K/uL Nucleated RBC % 0.0 /100WBC Nucleated RBCs # 0 K/uL Sodium 142 (136-145) mmol/L Potassium 3.0 L (3.5-5.1) mmol/L Chloride 103 (98-107) mmol/L Carbon Dioxide 28.6 (21.0-32.0) mmol/L BUN 22 H (7.0-18.0) mg/dL Creatinine 0.9 (0.6-1.0) mg/dL Est Cr Clr Drug Dosing 39.99 mL/min Estimated GFR (MDRD) > 60.0 ml/min Glucose 120 H (74-106) mg/dL Calcium 9.7 (8.5-10.1) mg/dL Meds: Medications Discontinued Medications Generic Name Dose Route Start Last Admin Trade Name Freq PRN Reason Stop Dose Admin Clindamycin HCl 300 mg 06/01/20 16:10 06/01/20 16:34 Clindamycin Hcl 150 Mg Cap PO 06/01/20 16:11 300 mg ONETIME ONE Administration Diphtheria/Tetanus/Acell Pertussis 0.5 ml 06/01/20 16:15 06/01/20 16:34 Diphtheria,Pertussis(Acell),Tetanus Vaccine 0.5 Ml Syringe IM 06/01/20 16:16 0.5 ml .ONCE ONE Administration Departure - Departure Time of Disposition: 17:37 Disposition: Home, Self-Care 01 Condition: Good Clinical Impression: Fall, Concussion with less than 1 hour loss of consciousness, Lip laceration - Discharge Information Prescriptions: Clindamycin HCl 300 mg PO TID 5 Days #15 capsule Instructions: Head Injury, Adult, [id number], Nonsutured Laceration Care Referrals: PCP,None [Primary Care Provider] - Forms: ED Department Discharge Additional Instructions: Your potassium is 3.0. Start your potassium supplement as recommended by your doctor and get your doctor to follow-up. Go on a liquid diet until the laceration heals in the inside lip. You can wash it out with mouthwash if you want. Please take the antibiotics that were sent to service [facility]. [facility] - Primary Care [address] [place] [address] [place] [address] The following information is given to patients seen in the emergency department who are being discharged to home. This information is to outline your options for follow-up care. We provide all patients seen in our emergency department with a follow-up referral. The need for follow-up, as well as the timing and circumstances, are variable depending upon the specifics of your emergency department visit. If you don't have a primary care physician on staff, we will provide you with a referral. We always advise you to contact your personal physician following an emergency department visit to inform them of the circumstance of the visit and for follow-up with them and/or the need for any referrals to a consulting specialist. The emergency department will also refer you to a specialist when appropriate. This referral assures that you have the opportunity for follow-up care with a specialist. All of these measure are taken in an effort to provide you with optimal care, which includes your follow-up. Under all circumstances we always encourage you to contact your private physician who remains a resource for coordinating your care. When calling for follow-up care, please make the office aware that this follow-up is from your recent emergency room visit. If for any reason you are refused follow-up, please contact the [facility] Emergency Department at and asked to speak to the emergency department charge nurse. Sepsis Event Note (ED) - Focused Exam Vital Signs: Vital Signs Temp Pulse Resp BP Pulse Ox 06/01/20 16:17 36.3 C 94 16 154/67 H 95 - My Orders Last 24 Hours: My Active Orders 06/01/20 16:08 EKG Documentation Completion [RC] AM 06/01/20 16:10 Communication Order [RC] STAT 06/01/20 16:15 Vaccines to be Administered [RC] PER UNIT ROUTINE - Assessment/Plan Last 24 Hours: My Active Orders 06/01/20 16:08 EKG Documentation Completion [RC] AM 06/01/20 16:10 Communication Order [RC] STAT 06/01/20 16:15 Vaccines to be Administered [RC] PER UNIT ROUTINE
[2020-06-01 17:18] LABS: BLOOD UREA NITROGEN,BUN 22 mg/dL (7.0-18.0); CARBON DIOXIDE,CO2 28.6 mmol/L (21.0-32.0); CHLORIDE,CL 103 mmol/L (98-107); GLUCOSE RANDOM 120 mg/dL (74-106); SODIUM,NA 142 mmol/L (136-145)
--- NOTE | 2020-06-01 17:19 | CT ---
INDICATION: Fall. Facial trauma. TECHNIQUE: Noncontrast CT images were acquired through the brain. COMPARISON: None. FINDINGS: Prominence of the ventricles and sulci compatible with mild to moderate diffuse cerebral volume loss. No mass effect or midline shift. The galvin-white differentiation is maintained. No acute intracranial hemorrhage or pathologic extra-axial fluid collection. Intracranial atherosclerotic calcifications. Thinning of the ocular lenses. The calvarium is intact. Minimal paranasal sinus mucosal thickening. The mastoid air cells are clear. IMPRESSION: 1. No acute intracranial hemorrhage or mass effect. 2. [id number] diffuse cerebral volume loss. Please note that all CT scans at this facility use dose modulation, iterative reconstruction, and/or weight-based dosing when appropriate to reduce radiation dose to as low as reasonably achievable. Dictated by Darren Ding MD @ Jun 01 2020 5:13PM Signed by Dr. Darren Ding @ Jun 01 2020 5:18PM
[2020-06-01 17:54] VITALS: BP 150/63; PULSE 83
== END 2020-06-01 17:54 | disposition home or self-care (01) ==
LOC: MW.ED 15:39
DX: S06.0X9A Concussion with loss of consciousness of unspecified duration, initial encounter (principal); S01.511A Laceration without foreign body of lip, initial encounter; M54.2 Cervicalgia; I10 Essential (primary) hypertension; J45.909 Unspecified asthma, uncomplicated; E66.9 Obesity, unspecified; Z68.33 Body mass index [BMI] 33.0-33.9, adult; Z91.040 Latex allergy status; Z23 Encounter for immunization; Z79.899 Other long term (current) drug therapy; W10.9XXA Fall (on) (from) unspecified stairs and steps, initial encounter
CPT/HCPCS: 36415; 70450; 80048; 85025; 90471; 90715; 93005; 99284; A9270

== ENCOUNTER 2022-01-22 06:38 | Day surgery (SDC) | payer MEDICARE, OTHER ==
[~2022-01-22 06:38] MED LIST changes: -Midazolam 1 MG/ML 2 ML SDV ONE; -Propofol 200 MG/20 ML SDV ONE; -Sodium Chloride 0.9% 10 ML SDV IV PRN; +Sodium Chloride 0.9% 20 ML SDV IV PRN; -fentaNYL 100 MCG/2 ML SDV ONE
[2022-01-22] MEDS ORDERED: Propofol 200 MG/20 ML SDV ONE (07:41)
[2022-01-22] MEDS ORDERED: Lidocaine 2% 5 ML SDV ONE (07:45)
[2022-01-22 08:46] VITALS: BP 111/46; PULSE 67
== END 2022-01-22 09:05 | disposition home or self-care (01) ==
LOC: MW.SDS 06:38
PROVIDERS: ATTEND Surgery
DX: K31.A0 Gastric intestinal metaplasia, unspecified (principal); K29.50 Unspecified chronic gastritis without bleeding; K44.9 Diaphragmatic hernia without obstruction or gangrene; B96.81 Helicobacter pylori [H. pylori] as the cause of diseases classified elsewhere; I10 Essential (primary) hypertension; J45.909 Unspecified asthma, uncomplicated; F32.A Depression, unspecified; E78.5 Hyperlipidemia, unspecified; E87.5 Hyperkalemia; Z91.040 Latex allergy status; Z79.899 Other long term (current) drug therapy; Z87.891 Personal history of nicotine dependence; Z98.890 Other specified postprocedural states; Z96.653 Presence of artificial knee joint, bilateral
CPT/HCPCS: 43239; 88305; 88342; J2704; J7120; 00731; 99100

== ENCOUNTER 2023-07-22 07:14 | Day surgery (SDC) | payer MEDICARE ==
[2023-07-22] MEDS ORDERED: Propofol 200 MG/20 ML SDV ONE (07:50)
[2023-07-22] MEDS ORDERED: dexmedeTOMIDine HCl 200 MCG/2 ML SDV ONE (07:50)
[2023-07-22] MEDS ORDERED: Water For Injection, Sterile 20 ML ONE (07:50)
[2023-07-22] MEDS: Lactated Ringers 1,000 ML IV SCH (08:18)
[2023-07-22 09:52] VITALS: BP 141/76; PULSE 63
== END 2023-07-22 09:41 | disposition home or self-care (01) ==
LOC: MW.SDS 07:14
PROVIDERS: ATTEND Surgery
DX: K29.50 Unspecified chronic gastritis without bleeding (principal); K31.A0 Gastric intestinal metaplasia, unspecified; K44.9 Diaphragmatic hernia without obstruction or gangrene; K31.7 Polyp of stomach and duodenum; I10 Essential (primary) hypertension; J45.909 Unspecified asthma, uncomplicated; F32.A Depression, unspecified; E78.5 Hyperlipidemia, unspecified; Z87.891 Personal history of nicotine dependence; Z79.899 Other long term (current) drug therapy; Z91.040 Latex allergy status
CPT/HCPCS: 43239; 88305; 88342; J2704; J7120; 00731; 99100; J3490

== ENCOUNTER 2023-09-30 10:33 | Day surgery (SDC) | payer MEDICARE ==
[2023-09-30] MEDS ORDERED: fentaNYL 50 MCG/ML SDV IVPUSH PRN (11:17)
[2023-09-30] MEDS ORDERED: Morphine 2 MG/ML SYRINGE IVPUSH PRN (11:17)
[2023-09-30] MEDS ORDERED: droPERidol 5 MG/2 ML SDV IVPUSH PRN (11:17)
[2023-09-30] MEDS ORDERED: Ondansetron 4 MG/2 ML SDV IVPUSH PRN (11:17)
[2023-09-30] MEDS ORDERED: Naloxone 0.4 MG/ML SDV IVPUSH PRN (11:17)
[2023-09-30] MEDS ORDERED: Metoclopramide 10 MG/2 ML SDV IVPUSH PRN (11:17)
[2023-09-30] MEDS ORDERED: HYDROmorphone 1 MG/ML Syringe IVPUSH PRN (11:17)
[2023-09-30] MEDS ORDERED: Albuterol 0.083% 2.5 MG/3 ML Neb Soln NEB PRN (11:17)
[2023-09-30] MEDS ORDERED: Ondansetron 4 MG/2 ML SDV ONE (11:38)
[2023-09-30] MEDS ORDERED: Metoclopramide 10 MG/2 ML SDV ONE (11:38)
[2023-09-30] MEDS ORDERED: Lidocaine 1% with EPINEPHrine 1:100,000 10 ML MDV ONE ×2 (11:43→11:44)
[2023-09-30] MEDS: Lactated Ringers 1,000 ML IV SCH (11:45)
[2023-09-30] MEDS ORDERED: Scopalamine 1mg/3day Transdermal Patch TOP ONE (12:00)
[2023-09-30] MEDS ORDERED: Ketamine HCL/NACL, ISO-OSM 50 MG/5 ML Syringe ONE (12:01)
[2023-09-30] MEDS ORDERED: propofoL 50 ML ONE (12:08)
[2023-09-30 13:23] VITALS: BP 131/50; PULSE 64
== END 2023-09-30 13:25 | disposition home or self-care (01) ==
LOC: MW.SDS 10:33 → EDSTATUS 13:30
PROVIDERS: ATTEND Obstetrics & Gynecology
DX: N88.2 Stricture and stenosis of cervix uteri (principal); R93.89 Abnormal findings on diagnostic imaging of other specified body structures; L43.9 Lichen planus, unspecified; I10 Essential (primary) hypertension; K21.9 Gastro-esophageal reflux disease without esophagitis; F32.A Depression, unspecified; F41.9 Anxiety disorder, unspecified; J45.909 Unspecified asthma, uncomplicated; Z79.899 Other long term (current) drug therapy; Z91.040 Latex allergy status
CPT/HCPCS: 58120; 88305; J0131; J2405; J2704; J7120; 00940; 64488; J2765; J3490